=== PATIENT | female | born 1960 | race African-American/Black ===

== ENCOUNTER 2016-12-15 14:56 | Inpatient (IN) | payer OTHER ==
[~2016-12-15] VITALS: Ht 157.5 cm; Wt 106.1 kg
[~2016-12-15 14:56] MED LIST: AMOXICILLIN500 M3 PO; BACTRIM DS TAB1 EACH PO
--- NOTE | 2016-12-15 15:07 | NUR ---
PT STATES THAT THIS AM SHE NOTICED BLOOD IN HER URINE AND ALSO STATES THAT SHE FEELS WEAK. PT HAS HX OF DM, PER PT HER BLOOD SUGAR DRY SANDER WAS 225 PT ALSO C/O PAIN ADM 03/10. ALSO BURNING AND ITCHING WHILE VOIDING.
--- NOTE | 2016-12-15 16:05 | NUR ---
IV EST #20 RAC
--- NOTE | 2016-12-15 16:08 | NUR ---
LABS DRAWN AND SENT TO THE LAB
--- NOTE | 2016-12-15 16:15 | NUR ---
PT MEDICATED PER EMAR
[2016-12-15 16:20] LABS: ABSOLUTE BASOPHIL COUNT 0 /CUMM (0.0-0.2); ABSOLUTE EOSINOPHIL COUNT 0 /CUMM (0.0-0.7); ABSOLUTE GRANULOCYTE CT 16.8 /CUMM (1.4-6.5); ABSOLUTE LYMPH COUNT 1.8 /CUMM (1.2-3.4); ABSOLUTE MONOCYTE COUNT 1.4 /CUMM (0.10-0.60); BASOPHIL % 0.1 % (0.0-2.0); EOSINOPHIL % 0 % (0-5); GRANULOCYTE % 84.1 % (42.2-75.2); HEMATOCRIT 44.7 % (37-47); MEAN CORPUSCULAR HGB 25.2 PG (27.0-31.0); MEAN CORPUSCULAR HGB CONC 32.5 G/DL (33.0-37.0); MEAN CORPUSCULAR VOLUME 77.6 FL (81.0-99.0); PLATELET COUNT 242 /CUMM (130-400); RBC DISTRIBUTION WIDTH 15.8 % (11.5-14.5); RED BLOOD CELL CT 5.76 /CUMM (4.20-5.40); WHITE BLOOD CELL COUNT 19.9 /CUMM (4.8-10.8)
[2016-12-15] MEDS ORDERED: AMLODIPINE BESY10 M1 PO (16:48)
[2016-12-15] MEDS ORDERED: LISINOPRIL40 M1 PO (16:49)
[2016-12-15] MEDS ORDERED: GABAPENTIN300 M2 PO (16:49)
[2016-12-15] MEDS ORDERED: METOPROLOL SUC100 M2 PO (16:49)
[2016-12-15] MEDS ORDERED: LANTUS SOL100 UNIT/1 SC (16:49)
[2016-12-15] MEDS ORDERED: CELEBREX100 M1 PO (16:50)
[2016-12-15] MEDS ORDERED: CYCLOBENZAPRINE10 M1 PO (16:50)
[2016-12-15] MEDS ORDERED: JANUMET 50-1,01 EACH PO (16:51)
[2016-12-15] MEDS ORDERED: ASPIRIN EC81 M1 PO (16:51)
[2016-12-15] MEDS ORDERED: POTASSIUM CHLO10 ME4 PO (16:51)
[2016-12-15] MEDS ORDERED: FUROSEMIDE40 M1 PO (16:51)
[2016-12-15] MEDS ORDERED: ATORVASTATIN CA10 M1 PO (16:52)
[2016-12-15] MEDS ORDERED: NEXIUM40 M1 PO (16:52)
--- NOTE | 2016-12-15 17:26 | ED GI/GU/ABDOMINAL COMPLAINT ---
History of Present Illness General Chief Complaint: Female Urogenital Problems Stated Complaint: BLDY URINE Source: patient Exam Limitations: no limitations Vital Signs & Intake/Output Vital Signs & Intake/Output Vital Signs Date Time Temp Pulse Resp B/P Pulse O2 O2 Flow FiO2 Ox Delivery Rate 12/17 0920 101.3 12/17 0909 115 144/82 12/17 0909 115 144/82 12/17 0623 100.7 106 20 140/72 97 Nasal 2.0L Cannula 12/17 0532 97 Nasal 2.0L Cannula 12/17 0450 90 Room Air 12/17 0140 100.6 12/17 0050 102.5 12/17 0000 100.6 12/16 2232 102.5 102 18 122/82 92 Room Air 12/16 1429 98.7 89 18 132/70 92 Room Air 12/16 1231 93 124/84 12/16 1231 93 124/84 12/16 1200 98.6 94 20 128/78 94 Room Air ED Intake and Output 12/17 0000 12/16 1200 Intake Total 1520 60 Output Total 2150 200 Balance -630 -140 Intake, IV 800 Intake, Oral 720 60 Output, Urine 2150 200 Patient 234 lb Weight Allergies Coded Allergies: NO KNOWN ALLERGIES (02/17/13) Reconcile Medications Amlodipine Besylate 10 MG TABLET 1 TAB PO DAILY BP (Reported) Aspirin (Ecotrin*) 81 MG TABLET.DR 1 TAB PO DAILY HEART/BLOOD (Reported) Atorvastatin Calcium 10 MG TABLET 1 TAB PO DAILY CHOLESTEROL (Reported) Celecoxib (Celebrex) 100 MG CAPSULE 1 CAP PO BID PAIN/INFLAMMATION (Reported) Cyclobenzaprine HCl 10 MG TABLET 1 TAB PO TID PRN MUSCLE SPASMS (Reported) Esomeprazole (Nexium) 40 MG CAPSULE.DR 1 CAP PO DAILY GI (Reported) Furosemide 40 MG TABLET 1 TAB PO DAILY DIURETIC/BP (Reported) Gabapentin 300 MG CAPSULE 1 CAP PO TID NERVE PAIN (Reported) Insulin Glargine,Hum.rec.anlog (Lantus Solostar) 100 UNIT/ML (3 ML) INSULN.PEN 35 UNIT SC QPM DM (Reported) Lisinopril 40 MG TABLET 1 TAB PO DAILY BP (Reported) Metoprolol Succinate 100 MG TAB.ER.24H 1 TAB PO DAILY HEART/BP (Reported) Potassium Chloride 10 MEQ TABLET.ER 1 TAB PO DAILY SUPPLEMENT (Reported) Sitagliptin Phos/Metformin HCl (Janumet 50-1,000 MG Tablet) 50 MG-1,000 MG TABLET 1 TAB PO BID DM (Reported) Triage Note: PT STATES THAT THIS AM SHE NOTICED BLOOD IN HER URINE AND ALSO STATES THAT SHE FEELS WEAK. PT HAS HX OF DM, PER PT HER BLOOD SUGAR CHARGING MANIPULATOR WAS 225 PT ALSO C/O PAIN ADM 03/10. ALSO BURNING AND ITCHING WHILE VOIDING. Triage Nurses Notes Reviewed? yes ? N Is pt currently ? No Onset: Abrupt Duration: day(s): (2), constant, getting worse Timing: recent history Quality/Severity: moderate, sharpness, severe Location: left flank Radiation: back Activities at Onset: none No Modifying Factors: none HPI: 55-year-old female comes into emergency room for further evaluation of abdominal pain and left sided flank pain. Patient also reports increased frequency with urination burning and urgency. Patient has been having subjective fever chills and feeling generally weak. Abdominal pain is not really localized and she describes as feeling general. Nothing seems to make the symptoms better or worse. Denies any prior history of this. Denies any other associated symptoms. (XIOMARA GUAJARDO) Past History Travel History Traveled to [place] past 21 day No Medical History Any Pertinent Medical History? see below for history Cardiovascular: hypertension, hyperlipidemia Respiratory: asthma Musculoskeletal: osteoarthritis Endocrine: diabetes Surgical History Surgical History: non-contributory Psychosocial History What is your primary language Welsh Tobacco Use: Never used Family History Hx Contributory? No (XIOMARA GUAJARDO) Review of Systems Review of Systems Constitutional: Reports: no symptoms. EENTM: Reports: no symptoms. Respiratory: Reports: no symptoms. Cardiovascular: Reports: no symptoms. GI: Reports: see HPI. Genitourinary: Reports: see HPI. Musculoskeletal: Reports: no symptoms. Skin: Reports: no symptoms. Neurological/Psychological: Reports: no symptoms. Hematologic/Endocrine: Reports: no symptoms. Immunologic/Allergic: Reports: no symptoms. All Other Systems: Reviewed and Negative (XIOMARA GUAJARDO) Physical Exam Physical Exam General Appearance: well developed/nourished, alert, mild distress Head: atraumatic, normal appearance Eyes: Bilateral: normal appearance. Ears, Nose, Throat, Mouth: hearing grossly normal, moist mucous membrane Neck: normal inspection, full range of motion Respiratory: normal breath sounds, no respiratory distress Cardiovascular: regular rate/rhythm Gastrointestinal: soft Back: normal inspection Extremities: normal range of motion Neurologic/Psych: awake, alert, oriented x 3, normal gait, normal mood/affect Skin: intact, normal color Core Measures ACS in differential dx? No Severe Sepsis Present: No BC x2: Yes Lactic Acid x2: Yes IV ABX Broad Spectrum: Yes NS/LR Started: Yes Septic Shock Present: No (XIOMARA GUAJARDO) Progress Differential Diagnosis: AAA, AMI, appendicitis, biliary colic, bowel obstruction , cholecystitis, diverticulitis, ectopic , gastritis, hepatitis, hemorrhoids, inflamm bowel dis, intrauterine , kidney stone, Kennedi- Maribel tear, ovarian cyst, ovarian torsion, pancreatitis, PID/cervicitis, peptic ulcer, PUD/GERD, perforated viscous, threatened AB, UTI/pyelo Plan of Care: Orders Procedure Date/time Status URINE COLLECTION FROM OR 12/17 0941 Active OXYGEN SETUP (GEN) 12/17 0534 Complete TRC EVALUATION (GEN) 12/17 UNK Active Consistent Carbohydrate 2 12/16 L Active BLOOD CULTURE 12/16 2116 Active Patient Data 12/16 1051 Active URINE COLLECTION FROM OR 12/16 1016 Active Vital Signs 12/16 UNK Complete Fernandez, Insertion/Removal/Asses 12/16 UNK Active Activity/Ambulation 12/16 UNK Complete Laboratory Tests 12/17/16 0634: Anion Gap 7, Estimated GFR > 60, BUN/Creatinine Ratio 12.9, CBC w Diff NO MAN DIFF REQ, RBC 4.17 L, MCV 77.3 L, MCH 25.2 L, RDW 16.0 H, MPV 10.7 H, Gran % 81.9 H, Lymphocytes % 11.4 L, Monocytes % 6.3, Eosinophils % 0.2, Basophils % 0.2, Absolute Granulocytes 5.4, Absolute Lymphocytes 0.7 L, Absolute Monocytes 0.4, Absolute Eosinophils 0, Absolute Basophils 0, PUBS MCHC 32.6 L Microbiology 12/17 0941 URINE OR: Urine Culture - ORD 12/16 2201 BLOOD: Blood Culture - RECD 12/16 2152 BLOOD: Blood Culture - RECD 12/16 0950 URINE OR: Urine Culture - RES Diagnostic Imaging: Viewed by Me: CT Scan. Discussed w/RAD: CT Scan. Radiology Impression: SERVICE DATE: 12/15/166315 EXAM TYPE: CAT - CT ABD & PELVIS W/O IV CONTRAS EXAMINATION: CT ABDOMEN AND PELVIS WITHOUT CONTRAST CLINICAL INFORMATION: CVA tenderness. Pain. COMPARISON: None. TECHNIQUE: Contiguous axial thin section helical images of the abdomen and pelvis were performed without oral or IV contrast. The data set was reformatted in the coronal and sagittal planes and reviewed on an independent workstation. DLP: 1010 mGy-cm. FINDINGS: There is mild bibasilar atelectasis. The visualized lung bases are otherwise clear. The visualized portions of the heart are unremarkable. The liver is of normal size and attenuation without focal lesions nor intrahepatic biliary ductal dilation. A normal gallbladder is identified. There is no wall thickening or discernible pericholecystic fluid. The spleen, pancreas, adrenal glands are unremarkable. There is left grade 3 hydroureteronephrosis with marked dilation and tortuosity to the left ureter. No obstructing calculi are identified. There is left periureteral stranding. There is moderate urinary bladder wall thickening in the setting of a partially filled urinary bladder. As well, there is stranding identified near the left UVJ. A normal right kidney is identified. There is no abdominal free fluid. There is neither mesenteric nor retroperitoneal lymphadenopathy. Normal unopacified loops of small and large bowel are identified. There is no pelvic free fluid. There is neither pelvic nor inguinal lymphadenopathy. Bone windows: Neither sclerotic nor lytic bone lesions are identified. IMPRESSION: Left grade 3 hydronephrosis with left periureteral stranding. No discrete calculi are identified; however, there is bladder wall thickening and a left UVJ region fat stranding. This appearance is nonspecific, but could correspond to a recently passed stone, inflammatory process or a mass lesion within the distal left ureter. Consider correlation with cystoscopy and/or ureteroscopy. DICTATED BY: FRANCHESCA BAILEY MD Initial ED EKG: none (XIOMARA GUAJARDO) Departure Departure Disposition: STILL A PATIENT Condition: Stable Clinical Impression Primary Impression: Pyelonephritis Referrals: JEFFREY ESQUIVEL APRN (PCP/Family) Departure Forms: Customer Survey General Discharge Information Admission Note Spoke With: LOR BOATENG MD Documentation of Exam: Documentation of any treatments & extenuating circumstances including Concerns Regarding Discharge (functional status, medication knowledge or non-compliance, living conditions, etc.) that warrant an admission rather than observation: Patient will require IV fluids. IV hydration. Repeat labs. Urology consultation. High risk. Patient would do poorly as an outpatient. (XIOMARA GUAJARDO) PA/AUTO BODY WORKER Co-Sign Statement Statement: ED Attending supervision documentation- [] I saw and evaluated the patient. I have also reviewed all the pertinent lab results and diagnostic results. I agree with the findings and the plan of care as documented in the PA's/AUTO BODY WORKER's documentation. [X] I have reviewed the ED Record and agree with the PA's/AUTO BODY WORKER's documentation. [] Additions or exceptions (if any) to the PAs/AUTO BODY WORKER's note and plan are summarized below: [] (MANOJ SHELL,NEFTALI) is nonspecific, but could correspond to a recently passed stone, inflammatory process or a mass lesion within the distal left ureter. Consider correlation with cystoscopy and/or ureteroscopy. DICTATED BY: FRANCHESCA BAILEY MD Initial ED EKG: none Departure Departure Disposition: STILL A PATIENT Condition: Stable Clinical Impression Primary Impression: Pyelonephritis Referrals: JEFFREY ESQUIVEL APRN (PCP/Family) Departure Forms: Customer Survey General Discharge Information Admission Note Spoke With: LOR BOATENG MD Documentation of Exam: Documentation of any treatments & extenuating circumstances including Concerns Regarding Discharge (functional status, medication knowledge or non-compliance, living conditions, etc.) that warrant an admission rather than observation: Patient will require IV fluids. IV hydration. Repeat labs. Urology consultation. High risk. Patient would do poorly as an outpatient.
--- NOTE | 2016-12-15 17:54 | CT SCAN REPORT ---
EXAMINATION: CT ABDOMEN AND PELVIS WITHOUT CONTRAST CLINICAL INFORMATION: CVA tenderness. Pain. COMPARISON: None. TECHNIQUE: Contiguous axial thin section helical images of the abdomen and pelvis were performed without oral or IV contrast. The data set was reformatted in the coronal and sagittal planes and reviewed on an independent workstation. DLP: 1010 mGy-cm. FINDINGS: There is mild bibasilar atelectasis. The visualized lung bases are otherwise clear. The visualized portions of the heart are unremarkable. The liver is of normal size and attenuation without focal lesions nor intrahepatic biliary ductal dilation. A normal gallbladder is identified. There is no wall thickening or discernible pericholecystic fluid. The spleen, pancreas, adrenal glands are unremarkable. There is left grade 3 hydroureteronephrosis with marked dilation and tortuosity to the left ureter. No obstructing calculi are identified. There is left periureteral stranding. There is moderate urinary bladder wall thickening in the setting of a partially filled urinary bladder. As well, there is stranding identified near the left UVJ. A normal right kidney is identified. There is no abdominal free fluid. There is neither mesenteric nor retroperitoneal lymphadenopathy. Normal unopacified loops of small and large bowel are identified. There is no pelvic free fluid. There is neither pelvic nor inguinal lymphadenopathy. Bone windows: Neither sclerotic nor lytic bone lesions are identified. IMPRESSION: Left grade 3 hydronephrosis with left periureteral stranding. No discrete calculi are identified; however, there is bladder wall thickening and a left UVJ region fat stranding. This appearance is nonspecific, but could correspond to a recently passed stone, inflammatory process or a mass lesion within the distal left ureter. Consider correlation with cystoscopy and/or ureteroscopy.
--- NOTE | 2016-12-15 19:24 | NUR ---
REPORT REPORTED. PT ALERT AND ORIENTED X 4. VITAL SIGNS STABLE. IV NS THIRD BAG UP INFUSING, ROCEPHIN 1G INFUSING ORDERED. C/O LEFT FLANK PAIN 06/10. MEDICATED WITH VICODIN PRIN ORDERED.
--- NOTE | 2016-12-15 19:44 | History & Physical ---
WOODY CURRY 12/15/161910: General Information and HPI MD Statement: I have seen and personally examined JOHN BLACKBURN and documented this H&P. The patient is a 55 year old F who presented with a patient stated chief complaint of [abdominal pain, blood in urine]. Source of Information: patient Exam Limitations: no limitations History of Present Illness: Patient is a 55-year-old female with past medical history of hypertension, hyperlipidemia, asthma, osteoarthritis, siatica, diabetes mellitus presented to the ED with a chief complaint of abdominal pain, worsening nausea and blood in urine for the past 2 days. Patient states that for the past 2 days she has been feeling very weak, nauseous and lethargic. She has been having crampy abdominal pain mostly located in the left lower quadrant about 8 / 10 in intensity radiating to her left groin. She also complains of pain in her left flank area. She has been feeling hot with chills but never measured her temperature at home. Complains of increased, urgency, frequency and dysuria along with some bright red blood in urine and bright blood on the tissue when wiping. She has been feeling so sick and nauseous that she hasn't eaten much over the past 2 days. Denies any history of kidney stones, frequent UTIs or urinary problems. Denies any headaches, chest pain, vomiting, palpitations, bowel complaints, recent travel or sick contacts. In the ED Vitals: Temperature 96.6, pulse 118, respiration 18, blood pressure 121/79, saturating 95% on room air Pertinent labs showed white count of 19.9 no bands, H&H of 14.5/44.7, sodium 135 , potassium 3.7, creatinine 1.1(baseline 0.9), glucose 262, lactic acid pending, normal LFTs. UA: Bloody, tarry., Positive nitrite, moderate leukocyte esterase, 50-75 WBC, large hemoglobin, increased RBCs, glucose 500, protein more than 300. Abdominal pelvis CT:Left grade 3 hydronephrosis with left periureteral stranding. No discrete calculi are identified; however, there is bladder wall thickening and a left UVJ region fat stranding. This appearance is nonspecific, but could correspond to a recently passed stone, inflammatory process or a mass lesion within the distal left ureter. Patient was given 4 L normal saline boluses, IV Toradol and IV Zofran along with IV ceftriaxone in the ED. Allergies/Medications Allergies: Coded Allergies: NO KNOWN ALLERGIES (02/17/13) Home Med list Amlodipine Besylate 10 MG TABLET 1 TAB PO DAILY BP (Reported) Aspirin (Ecotrin*) 81 MG TABLET.DR 1 TAB PO DAILY HEART/BLOOD (Reported) Atorvastatin Calcium 10 MG TABLET 1 TAB PO DAILY CHOLESTEROL (Reported) Celecoxib (Celebrex) 100 MG CAPSULE 1 CAP PO BID PAIN/INFLAMMATION (Reported) Cyclobenzaprine HCl 10 MG TABLET 1 TAB PO TID PRN MUSCLE SPASMS (Reported) Esomeprazole (Nexium) 40 MG CAPSULE.DR 1 CAP PO DAILY GI (Reported) Furosemide 40 MG TABLET 1 TAB PO DAILY DIURETIC/BP (Reported) Gabapentin 300 MG CAPSULE 1 CAP PO TID NERVE PAIN (Reported) Insulin Glargine,Hum.rec.anlog (Lantus Solostar) 100 UNIT/ML (3 ML) INSULN.PEN 35 UNIT SC QPM DM (Reported) Lisinopril 40 MG TABLET 1 TAB PO DAILY BP (Reported) Metoprolol Succinate 100 MG TAB.ER.24H 1 TAB PO DAILY HEART/BP (Reported) Potassium Chloride 10 MEQ TABLET.ER 1 TAB PO DAILY SUPPLEMENT (Reported) Sitagliptin Phos/Metformin HCl (Janumet 50-1,000 MG Tablet) 50 MG-1,000 MG TABLET 1 TAB PO BID DM (Reported) Past History Travel History Traveled to [place] past 21 day No Medical History Cardiovascular: hypertension, hyperlipidemia Respiratory: asthma Musculoskeletal: osteoarthritis Endocrine: diabetes Surgical History Surgical History: non-contributory Review of Systems Review of Systems Constitutional: Reports: chills, malaise, weakness. EENTM: Reports: no symptoms. Cardiovascular: Reports: no symptoms. Respiratory: Reports: no symptoms. GI: Reports: abdominal pain, nausea. Genitourinary: Reports: dysuria, frequency, hematuria, nocturia, pain. Musculoskeletal: Reports: no symptoms. Skin: Reports: no symptoms. Neurological/Psychological: Reports: no symptoms. Exam & Diagnostic Data Last 24 Hrs of Vital Signs/I&O Vital Signs Date Time Temp Pulse Resp B/P Pulse O2 O2 Flow FiO2 Ox Delivery Rate 12/15 1914 97.8 82 18 126/64 97 Room Air 12/15 1508 96.6 118 18 121/79 95 Room Air Intake & Output 12/15 1600 12/15 0800 12/15 0000 Intake Total Output Total Balance Patient 110.223 kg Weight Physical Exam General Appearance Alert, Oriented X3, Cooperative, Mild Distress Skin No Rashes, No Breakdown HEENT Atraumatic, PERRLA, EOMI Neck Supple, No JVD Lymphatic Cervical nl Cardiovascular Regular Rate, Normal S1, Normal S2 Lungs Clear to Auscultation, Normal Air Movement Abdomen LLQ TENDERNESS, CVA TENDERNESS LEFT SIDE. nO GUARDING/RIGIDITY Neurological Normal Tone, Sensation Intact, Cranial Nerves 3-12 NL, Reflexes 2+, 3/5 POWER ON LEFT UPPER AND LOWER EXTREMITIES Extremities No Clubbing, No Cyanosis, No Edema, Normal Pulses Last 24 Hrs of Labs/Michael: Laboratory Tests 12/15/16 1611: Urine Color BLDY H, Urine Clarity TURBD H, Urine pH 7.0, Ur Specific [place] 1.020, Urine Protein >=300 H, Urine Ketones 15 H, Urine Nitrite POS H, Urine Bilirubin NEG, Urine Urobilinogen 2.0 H, Ur Leukocyte Esterase MOD H, Ur Microscopic SEDIMENT EXAMINED, Urine RBC PACKD H, Urine WBC 50-75 H, Ur Epithelial Cells FEW, Urine Bacteria RARE H, Urine Hemoglobin LARGE H, Urine Glucose 500 H 12/15/16 1608: Anion Gap 15, Estimated GFR 51 L, BUN/Creatinine Ratio 15.5, Glucose 262 H, Lactic Acid Pending, Calcium 10.1, Total Bilirubin 1.3, AST 23, ALT 41, Alkaline Phosphatase 121, Total Protein 7.4, Albumin 4.1, Globulin 3.3, Albumin/Globulin Ratio 1.2, Lipase 122, CBC w Diff MAN DIFF ORDERED, RBC 5.76 H, MCV 77.6 L, MCH 25.2 L, RDW 15.8 H, MPV 10.0, Gran % 84.1 H, Lymphocytes % 8.8 L, Monocytes % 7.0, Eosinophils % 0, Basophils % 0.1, Absolute Granulocytes 16.8 H , Absolute Lymphocytes 1.8, Absolute Monocytes 1.4 H, Absolute Eosinophils 0, Absolute Basophils 0, Platelet Estimate ADEQUATE, Polychromasia 1+, Poikilocytosis FEW, Anisocytosis 1+, Microcytic Cells 1+, Stomatocytes FEW, PUBS MCHC 32.5 L Microbiology 12/15 1833 BLOOD: Blood Culture - RECD 12/15 1826 BLOOD: Blood Culture - RECD Assessment/Plan Assessment: Patient is a 55-year-old female with past medical history of hypertension, hyperlipidemia, asthma, osteoarthritis, siatica, diabetes mellitus presented to the ED with a chief complaint of abdominal pain, worsening nausea and blood in urine for the past 2 days. In the ED Vitals: Temperature 96.6, pulse 118, respiration 18, blood pressure 121/79, saturating 95% on room air Pertinent labs showed white count of 19.9 no bands, H&H of 14.5/44.7, sodium 135 , potassium 3.7, creatinine 1.1(baseline 0.9), glucose 262, lactic acid pending, normal LFTs. UA: Bloody, tarry., Positive nitrite, moderate leukocyte esterase, 50-75 WBC, large hemoglobin, increased RBCs, glucose 500, protein more than 300. Abdominal pelvis CT:Left grade 3 hydronephrosis with left periureteral stranding. No discrete calculi are identified; however, there is bladder wall thickening and a left UVJ region fat stranding. This appearance is nonspecific, but could correspond to a recently passed stone, inflammatory process or a mass lesion within the distal left ureter. Patient was given 4 L normal saline boluses, IV Toradol and IV Zofran along with IV ceftriaxone in the ED. Plan: 1.Sepsis of urological origin 2/2 Pyelonephritis, cystitis? Dirty urine with CT evidence of left grade 3 hydronephrosis with periurethral stranding /bladder wall thickening and a left UVJ region fat stranding. Patient could've passed a renal stone. Meets Sepsis criteria with tachycardia, leukocytosis with source being the urine. -[facility] -We'll keep patient nothing by mouth from midnight for possible intervention/ stent placement by urology. -Aggressive hydration with IV normal saline at 150 mL per hour X 2 bags. Patient received 3 L bolus in the ED. - Lactic acid levels pending -Patient received 1 dose of IV ceftriaxone in the ED. Continue the same pending culture and sensitivities. -Urine and blood cultures -Continue pain control with Tylenol Vicodin and morphine as needed -Urology consult 2.Flory: Postrenal secondary to grade 3 hydronephrosis2/2 calculi. Baseline 0.9. -Continue hydration with IV fluids at 100 mL an hour -Urology consult pending -Check BeP in a.m. -Avoid nephrotoxins -Holding Lasix, Lisinopril, PPI, NSAID 4. Diabetes mellitus -Hold home meds Janumet and insulin -Start patient on NovoLog scale -3 times a day Accu-Cheks - Diabetic diet 4. Hypertension/hyperlipidemia -Continue home meds atorvastatin and metoprolol from tomorrow if blood pressure stable. -Holding lisinopril for FLORY 5. Chronic back pain -Continue pain medication for mild/moderate and severe pain -Continue muscle relaxant and gabapentin Diabetic diet/nothing by mouth from midnight Severe pain pathway Full code As Ranked By This Provider Problem List: 1. Pyelonephritis Core Measures/Miscellaneous Acute Coronary Syndrome ACS Diagnosis: No Cerebrovascular Accident CVA/TIA Diagnosis: No Congestive Heart Failure CHF Diagnosis: No Venous Thromboembolism VTE Risk Factors: Age > 40, Obesity No [facility] VTE prophylaxis d/t: No contraindications No VTE Pharm Prophylaxis d/t: No contraindications VTE Diagnosis: No VTE Type: NONE VTE Confirmed by (Test): NONE Severe Sepsis Severe Sepsis Present: No Septic Shock Septic Shock Present: No Miscellaneous Documentation Attending Case Discussed With: LOR BOATENG MD Primary Care Physician: JEFFREY ESQUIVEL APRN Patient sees these Specialists none Level of Patient Care: General Medicine LOR BOATENG 12/16/16 0215: Attending MD Review Statement Attending Statement Attending MD Statement: examined this patient, discuss w/resident/PA/INSTRUCTIONAL TECHNOLOGY INSTRUCTOR, agreed w/resident/PA/INSTRUCTIONAL TECHNOLOGY INSTRUCTOR, reviewed EMR data (avail), reviewed images, amended to note Attending Assessment/Plan: CC : Blood in urine, left-sided abdominal pain PMH: DM, insulin-dependent, HTN, HLD, asthma, OA, history of meningitis as a child S/P residual left-sided weakness Patient came to ER for left sided abdominal pain and left sided flank pain, blood in urine. Last few days she's been noticing increased urinary frequency, burning, subjective fever, chills and nausea. Patient describes abdominal pain coming from back and going to lower abdomen, later on followed by blood in urine as mentioned. She never had similar symptoms in the past. Patient did not remember passing any stone. Patient is ambulating with a cane or a walker, activity restricted secondary to severe osteoarthritis, has history of dyspnea on exertion, on Lasix beta neri and EMILY inhibitor but not aware if she has history of heart failure. Vitals: T max 98.3, tachycardic at presentation at 118 improved to 84, RR, BP, O2 saturation within acceptable range. On examination: Obese, no acute distress, a O 3, neck supple, no JVD, no lymphadenopathy, mucosa dry. Residual weakness on left side, 4+/ 5. CVS: S1-S2, RRR. RS: Clear to auscultate bilaterally. Abdomen: Tenderness over the left lower quadrant, left CVA angle, bowel sounds normal, no guarding or rigidity. No dependent edema, peripheral pulses and perfusion normal. Labs: WBC 19.9, neutrophils 84%, lactic acid 2.4, sodium 135, chloride 96, creatinine 1.1, glucose 262, lipase 122, LFT unremarkable. UA turbid, positive for nitrite, leukocyte esterase, large hemoglobin. CT abdomen pelvis without IV contrast:Left grade 3 hydronephrosis with left periureteral stranding. No discrete calculi are identified; however, there is bladder wall thickening and a left UVJ region fat stranding. This appearance is nonspecific, but could correspond to a recently passed stone, inflammatory process or a mass lesion within the distal left ureter. Consider correlation with cystoscopy and/or ureteroscopy. A and P #1 sepsis secondary to hydronephrosis with pyelonephritis: Leukocytosis, evidence of UTI, CVA tenderness, abdominal pain. From Symptoms and CT finding it appears that patient may have passed stone, cannot confirm. Continue IV hydration, urine culture, blood culture, trend lactate, IV ceftriaxone 1 g daily. Urology consult in a.m. nothing by mouth after midnight #2 HTN: Considering current sepsis, hold lisinopril, Lasix. Schedule amlodipine and metoprolol for tomorrow, according to blood pressure readings overnight. #3 DM: Hold oral hypoglycemic, patient takes 35 units Lantus at home at bedtime. Considering patient being nothing by mouth, continue short-acting insulin sliding scale, resume her medications in a.m. according to surgical intervention planned and diet ordered. #4 patient on beta neri, EMILY inhibitor, Lasix, unaware of history of heart failure. Patient admits on and off leg swelling, dyspnea on exertion. At this point patient requires aggressive hydration for sepsis but watchful for any volume overload given suspected underlying heart failure. #5 DVT prophylaxis with Alps, currently patient having hematuria no heparin or Lovenox.
--- NOTE | 2016-12-15 20:05 | NUR ---
Emergency Dept [facility] Admit Note: To be admitted to [facility] by DESPHANDGil with PYELONEPHRITIS as the diagnosis, to [phone] location. Nursing Formula Technician and admitting notified 12/15/16 at 1934
--- NOTE | 2016-12-15 20:30 | NUR ---
REPORTS PAIN DOWN TO 8/10, BUT DIDN'T WANT ANYTHING FOR PAIN.
--- NOTE | 2016-12-15 20:38 | NUR ---
REPORT CALLED. DISTRIBUTION CALLED.
--- NOTE | 2016-12-15 20:50 | NUR ---
LACTIC ACID SECOND DRAWN AND SENT.
[2016-12-15 21:00] VITALS: BP 122/64
--- NOTE | 2016-12-15 21:16 | NUR ---
IV NS INFUSED. NS 4TH LITER UP INFUSING ORDERED.
--- NOTE | 2016-12-15 21:20 | NUR ---
JOHN BLACKBURN Nurse Note by: DILAN PUCKETT I agree with the WELDING SPECIALIST findings/evaluation of this patient's condition. Entered by: DILAN PUCKETT Date: 12/15/16 Time: 2119
--- NOTE | 2016-12-16 02:15 | Admission Certification ---
Admission Certification Certification Statement - As attending physician, I certify that at the time of - admission, based on clinical presentation, severity of - symptoms, need for further diagnostic testing and - therapeutic interventions, and risk of adverse outcomes - without in-hospital treatment, in my clinical assessment, - this patient requires an acute hospital stay for a minimum - of two nights or longer. I have also considered psychsocial - factors such as support system, advanced age, financial - issues, cognitive issues, and failed out-patient treatments, - past re-admission history, safety of patient, and lack of - compliance as applicable. Specific rationale supporting this admission is: Pyelonephritis with hydronephrosis with underlying multiple comorbidities.
--- NOTE | 2016-12-16 06:43 | PN- Housestaff ---
See Addendum Subjective Follow-up For: Sepsis of urological origin Flory Diabetes mellitus Subjective: Patient seen and examined. Lying comfortably in bed. Feeling a little better than yesterday. Abdominal pain a little improved. He is being maintained nothing by mouth for a possible procedure by urology. Review of Systems Constitutional: Reports: malaise, weakness. EENTM: Reports: no symptoms. Cardiovascular: Reports: no symptoms. Respiratory: Reports: no symptoms. Gastrointestinal: Reports: abdominal pain. Genitourinary: Reports: discharge, dysuria, frequency, hematuria, nocturia, urgency. Musculoskeletal: Reports: back pain. Skin: Reports: no symptoms. Objective Last 24 Hrs of Vital Signs/I&O Vital Signs Date Time Temp Pulse Resp B/P Pulse O2 O2 Flow FiO2 Ox Delivery Rate 12/15 2100 98.3 84 20 122/64 97 Room Air 12/15 1913 97.8 82 18 126/64 97 Room Air 12/15 1508 96.6 118 18 121/79 95 Room Air Intake & Output 12/16 0800 12/16 0000 12/15 1600 Intake Total 720 Output Total 250 Balance 470 Intake, IV 350 Intake, Oral 370 Output, Urine 250 Patient 106.141 kg 110.223 kg Weight Physical Exam General Appearance: Alert, Oriented X3, Cooperative, No Acute Distress Skin: No Rashes, No Breakdown HEENT: Atraumatic, PERRLA Neck: Supple, No JVD Lymphatic: Cervical nl Cardiovascular: Regular Rate, Normal S1, Normal S2, No Murmurs Lungs: Clear to Auscultation, Normal Air Movement Abdomen: LLQ tenderness, left CVA tenderness Neurological: 3/5 power in left upper and lower extremities Extremities: No Clubbing, No Cyanosis, No Edema, Normal Pulses Current Medications: Current Medications Sig/Marilia Start time Last Medication Dose Route Stop Time Status Admin Acetaminophen 325 MG Q6 PRN 12/15 1844 AC PO Acetaminophen/ 0 .STK-MED ONE 12/15 1917 DC Hydrocodone Bitart PO Acetaminophen/ 1 TAB Q6P PRN 12/15 1844 AC 12/15 Hydrocodone Bitart PO 1931 Amlodipine Besylate 10 MG DAILY 12/16 1000 AC PO Aspirin Buffered 81 MG DAILY 12/16 1000 AC PO Atorvastatin Calcium 10 MG DAILY 12/16 1000 AC PO Ceftriaxone Sodium 1,000 MG DAILY@1930 03/18 1930 AC IV Ceftriaxone Sodium 0 .STK-MED ONE 12/15 1912 DC .ROUTE Ceftriaxone Sodium 1,000 MG ONCE ONE 12/15 1815 DC 12/15 IV 12/15 1816 1932 Cyclobenzaprine HCl 10 MG TID PRN 12/15 2014 AC 12/15 PO 2330 Gabapentin 300 MG TID 12/15 2200 AC 12/15 PO 2330 Heparin Sodium 5,000 UNIT Q8 12/15 2200 DC 12/16 (Porcine) SC 0545 Insulin Aspart 0 TIDAC 12/16 0800 AC SC Ketorolac 0 .STK-MED ONE 12/15 1614 DC Tromethamine .ROUTE Ketorolac 30 MG ONCE ONE 12/15 1600 DC 12/15 Tromethamine IV 12/15 1601 1615 Metoprolol Succinate 100 MG DAILY 12/16 1000 AC PO Morphine Sulfate 2 MG Q4P PRN 12/15 1845 AC IV Ondansetron HCl 0 .STK-MED ONE 12/15 1614 DC .ROUTE Ondansetron HCl 4 MG ONCE ONE 12/15 1600 DC 12/15 IV 12/15 1601 1615 Oxycodone HCl 10 MG Q6P PRN 12/15 1845 AC 12/16 PO 0607 Patient Medication 1 UNIT ONE NR 12/15 2045 DC Teaching ED 12/15 2100 Patient Medication 1 UNIT ONE NR 12/15 204 DC Teaching ED 12/15 2100 Patient Medication 1 UNIT ONE NR 12/15 2045 DC Teaching ED 12/15 2100 Patient Medication 1 UNIT ONE NR 12/15 2045 DC Teaching ED 12/15 2100 Patient Medication 1 UNIT ONE NR 12/15 2045 MD Teaching ED 12/15 2100 Sodium Chloride 1,000 ML Q6H 12/15 2014 AC 12/16 IV 12/16 0814 0545 Sodium Chloride 1,000 ML BOLUS ONE 12/15 181 DC 12/15 IV 12/15 1914 1816 Sodium Chloride 1,000 ML BOLUS ONE 12/15 1815 DC IV 12/15 1914 Sodium Chloride 1,000 ML BOLUS ONE 12/15 1815 DC 12/15 IV 12/15 1914 1929 Sodium Chloride 1,000 ML BOLUS ONE 12/15 1600 DC 12/15 IV 12/15 1659 1615 Last 24 Hrs of Lab/Michael Results Last 24 Hrs of Labs/Mics: Laboratory Tests 12/16/16 0135: Lactic Acid 1.6 12/15/162044: Lactic Acid 1.2 12/15/162027: Lactic Acid Cancelled 12/15/16 1611: Urine Color BLDY H, Urine Clarity TURBD H, Urine pH 7.0, Ur Specific [place] 1.020, Urine Protein >=300 H, Urine Ketones 15 H, Urine Nitrite POS H, Urine Bilirubin NEG, Urine Urobilinogen 2.0 H, Ur Leukocyte Esterase MOD H, Ur Microscopic SEDIMENT EXAMINED, Urine RBC PACKD H, Urine WBC 50-75 H, Ur Epithelial Cells FEW, Urine Bacteria RARE H, Urine Hemoglobin LARGE H, Urine Glucose 500 H 12/15/16 1608: Anion Gap 15, Estimated GFR 51 L, BUN/Creatinine Ratio 15.5, Glucose 262 H, Lactic Acid 2.4 H, Calcium 10.1, Total Bilirubin 1.3, AST 23, ALT 41, Alkaline Phosphatase 121, Total Protein 7.4, Albumin 4.1, Globulin 3.3, Albumin/Globulin Ratio 1.2, Lipase 122, CBC w Diff MAN DIFF ORDERED, RBC 5.76 H, MCV 77.6 L, MCH 25.2 L, RDW 15.8 H, MPV 10.0, Gran % 84.1 H, Lymphocytes % 8.8 L, Monocytes % 7.0, Eosinophils % 0, Basophils % 0.1, Absolute Granulocytes 16.8 H , Absolute Lymphocytes 1.8, Absolute Monocytes 1.4 H, Absolute Eosinophils 0, Absolute Basophils 0, Platelet Estimate ADEQUATE, Polychromasia 1+, Poikilocytosis FEW, Anisocytosis 1+, Microcytic Cells 1+, Stomatocytes FEW, PUBS MCHC 32.5 L Microbiology 12/16 0000 URINE ROUT: Urine Culture - RECD 12/15 1834 BLOOD: Blood Culture - RECD 12/15 182 BLOOD: Blood Culture - RECD Assessment/Plan Assessment: Patient is a 55-year-old female with past medical history of hypertension, hyperlipidemia, asthma, osteoarthritis, siatica, diabetes mellitus presented to the ED with a chief complaint of abdominal pain, worsening nausea and blood in urine for the past 2 days. Vitals: Temperature 96.6, pulse 118, respiration 18, blood pressure 121/79, saturating 95% on room air Pertinent labs showed white count of 19.9 no bands, H&H of 14.5/44.7, sodium 135 , potassium 3.7, creatinine 1.1(baseline 0.9), glucose 262, lactic acid normal, normal LFTs. UA: Bloody, tarry., Positive nitrite, moderate leukocyte esterase, 50-75 WBC, large hemoglobin, increased RBCs, glucose 500, protein more than 300. Abdominal pelvis CT:Left grade 3 hydronephrosis with left periureteral stranding. No discrete calculi are identified; however, there is bladder wall thickening and a left UVJ region fat stranding. This appearance is nonspecific, but could correspond to a recently passed stone, inflammatory process or a mass lesion within the distal left ureter. Patient was given 4 L normal saline boluses, IV Toradol and IV Zofran along with IV ceftriaxone in the ED. Plan: 1.Sepsis of urological origin due to pyelonephritis (Dirty urineCT evidence of left grade 3 hydronephrosis with periurethral stranding /bladder wall thickening and a left UVJ region fat stranding.) * Patient could've passed a renal stone. * Meets Sepsis criteria with tachycardia, leukocytosis with source being the urine. * Maintained nothing by mouth from midnight for possible intervention/stent placement by urology. * Aggressive hydration with IV normal saline at 150 mL per hour X 2 bags. Patient received 3 L bolus in the ED. * Lactic acid levels trended down * Patient received 1 dose of IV ceftriaxone in the ED. Continue the same pending culture and sensitivities. * Urine and blood cultures * Continue pain control with Tylenol Vicodin and morphine as needed * Urology consult in am for possible intervention 2.Flory: Postrenal obstruction due to hydronephrosis/ calculi . Baseline 0.9. * Continue hydration with IV fluids at 100 mL an hour * Urology consult pending * Check BeP in a.m. * Avoid nephrotoxins * Holding Lasix, Lisinopril, PPI, NSAID 4. Diabetes mellitus * Hold home meds Janumet and insulin * On a Novolin scale since patient is nothing by mouth. Please restart the NovoLog scale once patient starts eating * 3 times a day Accu-Cheks * Diabetic diet 5. Hypertension/hyperlipidemia * Continue home meds atorvastatin and metoprolol from tomorrow if blood pressure stable. * Holding lisinopril for FLORY 6. Chronic back pain * Continue pain medication for mild/moderate and severe pain * Continue muscle relaxant and gabapentin nothing by mouth from midnight been urological procedure Severe pain pathway Full code DVT prophylaxis Alps(hematuria) Problem List: 1. Pyelonephritis 2. FLORY (acute kidney injury) 3. Diabetes mellitus Pain Ratin Pain Location: LLQ and left flank Pain Goal: Pain 4 or less Pain Plan: morphine vicodin tylenol Tomorrow's Labs & Rationales: cbc..infection bep... flory
[2016-12-16 07:48] VITALS: BP 118/60
--- NOTE | 2016-12-16 08:00 | Cons- Urology ---
General Information and HPI Consulting Request Date of Consult: 12/16/16 Requested By: Medical service LOR BOATENG MD Reason for Consult: Fever, leukocytosis, infected urine, L hydro-ureteronephrosis Source of Information: patient, old records Exam Limitations: no limitations History of Present Illness: This patient presented to the hospital with weakness and L flank pain. She was found to have infected urine, leukocytosis and elevated serum lactate level. A CT of the abd and pelvis showed moderate L hydro-ureteronephrosis to the level of the bladder, L periureteral stranding, and a thick-walled bladder. No ureteral stone was seen and the possibility of a recently passed stone was raised. She has no hx of urinary stones in the past. Since admission she received 1 dose of ceftriaxone and IV hydration. She feels slightly better but continues with L flank discomfort. Allergies/Medications Allergies: Coded Allergies: NO KNOWN ALLERGIES (02/17/13) Home Med List: Amlodipine Besylate 10 MG TABLET 1 TAB PO DAILY BP (Reported) Aspirin (Ecotrin*) 81 MG TABLET.DR 1 TAB PO DAILY HEART/BLOOD (Reported) Atorvastatin Calcium 10 MG TABLET 1 TAB PO DAILY CHOLESTEROL (Reported) Celecoxib (Celebrex) 100 MG CAPSULE 1 CAP PO BID PAIN/INFLAMMATION (Reported) Cyclobenzaprine HCl 10 MG TABLET 1 TAB PO TID PRN MUSCLE SPASMS (Reported) Esomeprazole (Nexium) 40 MG CAPSULE.DR 1 CAP PO DAILY GI (Reported) Furosemide 40 MG TABLET 1 TAB PO DAILY DIURETIC/BP (Reported) Gabapentin 300 MG CAPSULE 1 CAP PO TID NERVE PAIN (Reported) Insulin Glargine,Hum.rec.anlog (Lantus Solostar) 100 UNIT/ML (3 ML) INSULN.PEN 35 UNIT SC QPM DM (Reported) Lisinopril 40 MG TABLET 1 TAB PO DAILY BP (Reported) Metoprolol Succinate 100 MG TAB.ER.24H 1 TAB PO DAILY HEART/BP (Reported) Potassium Chloride 10 MEQ TABLET.ER 1 TAB PO DAILY SUPPLEMENT (Reported) Sitagliptin Phos/Metformin HCl (Janumet 50-1,000 MG Tablet) 50 MG-1,000 MG TABLET 1 TAB PO BID DM (Reported) Current Medications: Current Medications Sig/Marilia Start time Last Medication Dose Route Stop Time Status Admin Acetaminophen 325 MG Q6 PRN 12/15 1845 AC PO Acetaminophen/ 0 .STK-MED ONE 12/15 191 DC Hydrocodone Bitart PO Acetaminophen/ 1 TAB Q6P PRN 12/15 1845 AC 12/15 Hydrocodone Bitart PO 1932 Amlodipine Besylate 10 MG DAILY 12/16 1000 AC PO Aspirin Buffered 81 MG DAILY 12/16 1000 AC PO Atorvastatin Calcium 10 MG DAILY 12/16 1000 AC PO Ceftriaxone Sodium 1,000 MG DAILY@1930 12/16 1930 AC IV Ceftriaxone Sodium 0 .STK-MED ONE 12/15 191 DC .ROUTE Ceftriaxone Sodium 1,000 MG ONCE ONE 12/15 1815 DC 12/15 IV 12/15 181 193 Cyclobenzaprine HCl 10 MG TID PRN 12/15 2014 AC 12/15 PO 2330 Gabapentin 300 MG TID 12/15 2199 AC 12/15 PO 2330 Heparin Sodium 5,000 UNIT Q8 12/15 220 DC 12/16 (Porcine) SC 0545 Insulin Aspart 0 TIDAC 12/16 0800 CAN SC Insulin Human Regular 0 TIDAC/HS 12/16 0800 AC SC Ketorolac 0 .STK-MED ONE 12/15 1614 DC Tromethamine .ROUTE Ketorolac 30 MG ONCE ONE 12/15 1600 DC 12/15 Tromethamine IV 12/15 1601 1615 Metoprolol Succinate 100 MG DAILY 12/16 1000 AC PO Morphine Sulfate 2 MG Q4P PRN 12/15 1845 AC IV Ondansetron HCl 0 .STK-MED ONE 12/15 1614 DC .ROUTE Ondansetron HCl 4 MG ONCE ONE 12/15 1600 DC 12/15 IV 12/15 1601 1615 Oxycodone HCl 10 MG Q6P PRN 12/15 1845 AC 12/16 PO 0607 Patient Medication 1 UNIT ONE NR 12/15 2044 DC Teaching ED 12/15 2100 Patient Medication 1 UNIT ONE NR 12/15 2044 DC Teaching ED 12/15 2100 Patient Medication 1 UNIT ONE NR 12/15 2044 DC Teaching ED 12/15 2100 Patient Medication 1 UNIT ONE NR 12/15 2044 DC Teaching ED 12/15 2100 Patient Medication 1 UNIT ONE NR 12/15 2044 DC Teaching ED 12/15 2100 Sodium Chloride 1,000 ML Q6H 12/15 2014 AC 12/16 IV 12/16 0814 0545 Sodium Chloride 1,000 ML BOLUS ONE 12/15 1815 DC 12/15 IV 12/15 191 1816 Sodium Chloride 1,000 ML BOLUS ONE 12/15 1815 DC IV 12/15 191 Sodium Chloride 1,000 ML BOLUS ONE 12/15 1815 DC 12/15 IV 12/15 1914 1929 Sodium Chloride 1,000 ML BOLUS ONE 12/15 1600 DC 12/15 IV 12/15 1659 1615 Past History Medical History Blood Transfusion Hx: No Neurological: NONE EENT: allergies Cardiovascular: hypertension, hyperlipidemia Respiratory: asthma Gastrointestinal: GERD Hepatic: NONE Renal: NONE Musculoskeletal: chronic back pain, falls, osteoarthritis, sciatica Psychiatric: NONE Endocrine: diabetes Blood Disorders: NONE Cancer(s): NONE DEPARTMENT OF SOCIOLOGY CHAIR/Reproductive: TUBAL LIGATION Surgical History Pertinent Surgical History: appendectomy, tubal ligation, TONSILLECTOMY Psychosocial History Where Do You Live? Home Services at Home: None Smoking Status: Never Smoked Exam & Diagnostic Data Vital Signs and I&O Vital Signs Date Time Temp Pulse Resp B/P Pulse O2 O2 Flow FiO2 Ox Delivery Rate 12/16 0748 100.7 123 20 118/60 92 Room Air 12/15 2100 98.3 84 20 122/64 97 Room Air 12/15 1914 97.8 82 18 126/64 97 Room Air 12/15 1508 96.6 118 18 121/79 95 Room Air Intake & Output 12/16 0800 12/16 0000 12/15 1600 12/15 0800 12/15 0000 12/14 1600 Intake Total 720 Output Total 250 Balance 470 Intake, IV 350 Intake, Oral 370 Output, Urine 250 Patient 234 lb 243 lb Weight Back: L CVA tenderness present Abd: soft and non tender Laboratory Tests 12/16 12/16 12/15 12/15 0625 0135 2044 2027 Chemistry Sodium Pending Potassium Pending Chloride Pending Carbon Dioxide Pending Anion Gap Pending BUN Pending Creatinine Pending BUN/Creatinine Ratio Pending Lactic Acid (0.7 - 2.1 mmol/L) 1.6 1.2 Cancelled Hematology CBC w Diff Pending WBC Pending RBC Pending Hgb Pending Hct Pending MCV Pending MCH Pending RDW Pending Plt Count Pending MPV Pending PUBS MCHC Pending 12/15 12/15 1611 1608 Chemistry Sodium (137 - 145 mmol/L) 135 L Potassium (3.5 - 5.1 mmol/L) 3.7 Chloride (98 - 107 mmol/L) 96 L Carbon Dioxide (22 - 30 mmol/L) 25 Anion Gap (5 - 16) 15 BUN (7 - 17 mg/dL) 17 Creatinine (0.5 - 1.0 mg/dL) 1.1 H Estimated GFR (>60 ml/min) 51 L BUN/Creatinine Ratio (7 - 25 %) 15.5 Glucose (65 - 99 mg/dL) 262 H Lactic Acid (0.7 - 2.1 mmol/L) 2.4 H Calcium (8.4 - 10.2 mg/dL) 10.1 Total Bilirubin (0.2 - 1.3 mg/dL) 1.3 AST (14 - 36 U/L) 23 ALT (9 - 52 U/L) 41 Alkaline Phosphatase (<127 U/L) 121 Total Protein (6.3 - 8.2 g/dL) 7.4 Albumin (3.5 - 5.0 g/dL) 4.1 Globulin (1.9 - 4.2 gm/dL) 3.3 Albumin/Globulin Ratio (1.1 - 2.2 %) 1.2 Lipase (23 - 300 U/L) 122 Hematology CBC w Diff MAN DIFF ORDERED WBC (4.8 - 10.8 /CUMM) 19.9 H RBC (4.20 - 5.40 /CUMM) 5.76 H Hgb (12.0 - 16.0 G/DL) 14.5 Hct (37 - 47 %) 44.7 MCV (81.0 - 99.0 FL) 77.6 L MCH (27.0 - 31.0 PG) 25.2 L RDW (11.5 - 14.5 %) 15.8 H Plt Count (130 - 400 /CUMM) 242 MPV (7.4 - 10.4 FL) 10.0 Gran % (42.2 - 75.2 %) 84.1 H Lymphocytes % (20.5 - 51.1 %) 8.8 L Monocytes % (1.7 - 9.3 %) 7.0 Eosinophils % (0 - 5 %) 0 Basophils % (0.0 - 2.0 %) 0.1 Absolute Granulocytes (1.4 - 6.5 /CUMM) 16.8 H Absolute Lymphocytes (1.2 - 3.4 /CUMM) 1.8 Absolute Monocytes (0.10 - 0.60 /CUMM) 1.4 H Absolute Eosinophils (0.0 - 0.7 /CUMM) 0 Absolute Basophils (0.0 - 0.2 /CUMM) 0 Platelet Estimate (ADEQUATE) ADEQUATE Polychromasia 1+ Poikilocytosis FEW Anisocytosis 1+ Microcytic Cells 1+ Stomatocytes FEW PUBS MCHC (33.0 - 37.0 G/DL) 32.5 L Urines Urine Color (YEL,AMB,STR) BLDY H Urine Clarity (CLEAR) TURBD H Urine pH (5.0 - 8.0) 7.0 Ur Specific [place] (1.001 - 1.035) 1.020 Urine Protein (NEG,<30 MG/DL) >=300 H Urine Ketones (NEG) 15 H Urine Nitrite (NEG) POS H Urine Bilirubin (NEG) NEG Urine Urobilinogen (0.1 - 1.0 EU/dl) 2.0 H Ur Leukocyte Esterase (NEG) MOD H Ur Microscopic SEDIMENT EXAMINED Urine RBC (0 - 5 /HPF) PACKD H Urine WBC (0 - 2 /HPF) 50-75 H Ur Epithelial Cells (NONE,FEW) FEW Urine Bacteria (NEG/NONE) RARE H Urine Hemoglobin (NEG) LARGE H Urine Glucose (N MG/DL) 500 H Assessment/Plan Assessment/Plan Imp: 1. L pyelonephritis with L hydro-ureteronephrosis of unclear etiology 2. DM and HTN Plan: 1. In view of fever, leukocytosis, L hydronephrosis and DM L ureteral stent is planned to assure adequate drainage of L kidney. Risks, benefits, alternatives and possible complications discussed in detail with patient. 2. Will schedule for cysto and L ureteral stent insertion for this morning. Please keep npo except for sips of water with meds Consult Acknowledgment - Thank you for your consult request.
[2016-12-16 08:24] LABS: ABSOLUTE BASOPHIL COUNT 0 /CUMM (0.0-0.2); ABSOLUTE EOSINOPHIL COUNT 0 /CUMM (0.0-0.7); ABSOLUTE LYMPH COUNT 0.3 /CUMM (1.2-3.4); ABSOLUTE MONOCYTE COUNT 0.2 /CUMM (0.10-0.60); BASOPHIL % 0 % (0.0-2.0); RED BLOOD CELL CT 4.59 /CUMM (4.20-5.40)
--- NOTE | 2016-12-16 08:37 | NUR ---
LATE ENTRY FOR 12/15/16 2130 PT ARRIVED TO RM 216-2 FROM THE ER. PT AOX3. PT SETTLED INTO ROOM/SURROUNDINGS. BED ALARM IN USE/CALL CASTELAN IN REACH.
[2016-12-16 08:50] LABS: ABSOLUTE GRANULOCYTE CT 10.1 /CUMM (1.4-6.5); EOSINOPHIL % 0 % (0-5); GRANULOCYTE % 95.1 % (42.2-75.2); MEAN CORPUSCULAR HGB 25.2 PG (27.0-31.0); MEAN CORPUSCULAR HGB CONC 32.3 G/DL (33.0-37.0); MEAN PLATELET VOLUME 10.4 FL (7.4-10.4); PLATELET COUNT 156 /CUMM (130-400); RBC DISTRIBUTION WIDTH 15.6 % (11.5-14.5); WHITE BLOOD CELL COUNT 10.6 /CUMM (4.8-10.8)
[2016-12-16 08:57] LABS: HEMATOCRIT 35.9 % (37-47)
--- NOTE | 2016-12-16 10:10 | PN- Urology ---
Surgical Brief Attending Note Brief Attending Note: Patient underwent cystoscopy and insertion of L ureteral stent with the following findings: 1. Markedly abnormal bladder, likely due to cystitis 2. 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 Urine culture taken from L kidney Plan: 1. Leave freeman in place today and may remove in AM 2. Continue present abx 3. f/u cultures 4. May start diet this afternoon if patient feels well
--- NOTE | 2016-12-16 10:32 | Operative Report ---
Operative/Inv Procedure Report Surgery Date: 12/16/16 Name of Procedure: cystoscopy and insertion of L ureteral stent Pre-Operative Diagnosis: L pyelonephritis with L hydronephrosis Post-Operative Diagnosis: same and cystitis Estimated Blood Loss: scant Surgeon/Area Director: KILO Weller MD, AARTEE Anesthesia: moderate sedation Drains: 24 cm, 6 fr L double J ureteral stent and 16 fr freeman Specimens: Urine culture from L kidney Complications: none Condition: fair Operative Indication: Fever, leukocytosis, UTI, L hydro-ureteronephrosis and hx of Diabetes Operative/Procedure Note Note: The patient was taken to the OR and identified. She was placed in the supine position on the table and a time out executed appropriately. IV sedation was given. She was placed in the dorsal lithotomy position and prepped and draped in the usual manner for cystoscopy. A surgical pause was executed appropriately. A flouroscopy image was taken with a marker on the L side of the abdomen to confirm the correct side of the surgery and the correct orientation of the flouroscopy image. The 22 fr cystoscopy was placed in the bladder. There was debri which was irrigated out. The bladder appeared abnormal and was most consistent with severe cystitis. The left ureteral orifice was identified and a guide wire placed up to the area of the left kidney. An open ended catheter was placed over the wire and the wire removed. A small hydronephrotic drip was seen. A specimen was collected for culture. Some contrast was injected to outline the left renal collecting system. It was a bifid system which was mildly dilated, especially the lower pole. The guidewire was placed back through the open ended catheter and under visual and flouroscopic control a 24 cm, 6 fr double J stent was placed over the wire, which was removed. Flouroscopy showed the proximal end of the stent coiled in the L renal pelvis and the distal end coiled in the bladder. A freeman was placed. Findings: bifid L renal collecting system with mild dilation Discharge Disposition: PACU
[2016-12-16 12:00] VITALS: BP 128/78
--- NOTE | 2016-12-16 12:06 | RADIOLOGY REPORT ---
EXAMINATION: FL ABDOMEN CLINICAL INDICATION: Left ureteral stent placement. COMPARISON: CT scan of the abdomen and pelvis from yesterday. TECHNIQUE: Fluoroscopic guidance was provided for left retrograde exam and ureteral stent placement. 17 fluoroscopic images are submitted. FLUOROSCOPY TIME: 46 seconds KVP: 113 MAS: 2.21 FINDINGS: There is [id number] left hydronephrosis. There is a bifid left renal pelvis. The visualized left ureter appears dilated. No definite stone is seen. Final images demonstrate placement of a left internal ureteral stent in satisfactory position. IMPRESSION: Fluoroscopic guidance for left retrograde exam and ureteral stent placement.
--- NOTE | 2016-12-16 13:58 | NUR ---
PT WENT TO OR AT 0900 VIA DISTRABUTION BY STRETCHER. RECEIVED REPORT FROM OR NURSE VARGAS. PT ARRIVED BACK TO FLOOR AT 1200. VSS; DENIED PAIN; IV INTACT WITH D5 1/2NS 20 MEQ KCL RUNNING AT 100ML/HR. NO N/V; PATIENT EATING LUNCH AND TOLERATING WELL. WILL CONTINUE TO MONITOR.
[2016-12-16 14:29] VITALS: BP 132/70
[2016-12-16 22:32] VITALS: BP 122/82
[2016-12-17 06:23] VITALS: BP 140/72
--- NOTE | 2016-12-17 07:48 | PN- Urology ---
Subjective Subjective: Feels better Objective Vital Signs and I&Os Vital Signs Date Time Temp Pulse Resp B/P Pulse O2 O2 Flow FiO2 Ox Delivery Rate 12/17 0623 100.7 106 20 140/72 97 Nasal 2.0L Cannula 12/17 0532 97 Nasal 2.0L Cannula 12/17 0140 100.6 12/17 0050 102.5 12/17 0000 100.6 12/16 2232 102.5 102 18 122/82 92 Room Air 12/16 1429 98.7 89 18 132/70 92 Room Air 12/16 1231 93 124/84 12/16 1231 93 124/84 12/16 1200 98.6 94 20 128/78 94 Room Air 12/16 0824 99.7 118 12/16 0748 100.7 123 20 118/60 92 Room Air Intake & Output 12/17 0800 12/17 0000 12/16 1600 12/16 0800 12/16 0000 12/15 1600 Intake Total 240 640 880 60 720 Output Total 465 009 3867 200 250 Balance -710 -110 -520 -140 470 Intake, IV 400 400 350 Intake, Oral 240 240 480 60 370 Output, Urine 902 162 5287 200 250 Patient 234 lb 243 lb Weight Back: No CVA tenderness. L CVA tenderness has resolved Abd: soft and non tender Freeman draining blood-tinged urine Assessment/Plan Assessment/Plan Imp: 1. L pyelonephritis with mild L hydronephrosis. 2. s/p L ureteral stent insertion Plan: 1. Leave freeman today 2. continue abx 3. f/u urine cultures and adjust abx accordingly
--- NOTE | 2016-12-17 07:59 | NUR ---
0450 PT WITH C/O WHEEZING. DR Shruti SANTOS NOTIFIED. SEE ORDERS. RT TO EVAL THE PT. PT PLACED ON O2 2L NC/TRC. MOD DR MAURICIO HERE TO EVAL THE PT.
[2016-12-17 08:05] LABS: ABSOLUTE BASOPHIL COUNT 0 /CUMM (0.0-0.2); ABSOLUTE EOSINOPHIL COUNT 0 /CUMM (0.0-0.7); ABSOLUTE GRANULOCYTE CT 5.4 /CUMM (1.4-6.5); ABSOLUTE LYMPH COUNT 0.7 /CUMM (1.2-3.4); ABSOLUTE MONOCYTE COUNT 0.4 /CUMM (0.10-0.60); BASOPHIL % 0.2 % (0.0-2.0); EOSINOPHIL % 0.2 % (0-5); GRANULOCYTE % 81.9 % (42.2-75.2); HEMATOCRIT 32.3 % (37-47); MEAN CORPUSCULAR HGB 25.2 PG (27.0-31.0); MEAN CORPUSCULAR HGB CONC 32.6 G/DL (33.0-37.0); MEAN CORPUSCULAR VOLUME 77.3 FL (81.0-99.0); MEAN PLATELET VOLUME 10.7 FL (7.4-10.4); PLATELET COUNT 150 /CUMM (130-400); RED BLOOD CELL CT 4.17 /CUMM (4.20-5.40); WHITE BLOOD CELL COUNT 6.6 /CUMM (4.8-10.8)
--- NOTE | 2016-12-17 10:08 | PN- Housestaff ---
[facility] 12[facility]17[facility]16 1008: Subjective Follow-up For: Urosepsis Subjective: Patient was spiking fever yesterday up to 102, his morning she is complaining of lower abdominal pain, and mild back pain. She denies nausea, vomiting or chills. Her temperature this morning is 101. Patient has a Fernandez catheter, patient has hematuria(status post stent) Review of Systems Constitutional: Reports: see HPI. Objective Last 24 Hrs of Vital Signs/I&O Vital Signs Date Time Temp Pulse Resp B/P Pulse O2 O2 Flow FiO2 Ox Delivery Rate 12/17 1048 Nasal 2.0L Cannula 12/17 1019 99.5 12/17 0920 101.3 12/17 0909 115 144/82 12/17 0909 115 144/82 12/17 0800 96 Nasal 2.0L Cannula 12/17 0623 100.7 106 20 140/72 97 Nasal 2.0L Cannula 12/17 0532 97 Nasal 2.0L Cannula 12/17 0450 90 Room Air 12/17 0140 100.6 12/17 0050 102.5 12/17 0000 100.6 12/16 2232 102.5 102 18 122/82 92 Room Air Intake & Output 12/17 1600 12/17 0800 12/17 0000 Intake Total 1280 640 Output Total 950 750 Balance 330 -110 Intake, IV 800 400 Intake, Oral 480 240 Output, Urine 950 750 Physical Exam General Appearance: Alert, Oriented X3, Cooperative, No Acute Distress Skin: No Rashes HEENT: Atraumatic, PERRLA, EOMI, Mucous Membr. moist/pink Cardiovascular: Regular Rate, Normal S1, Normal S2, No Murmurs Lungs: Clear to Auscultation Abdomen: Soft, tenderness in the suprapubic area Neurological: Normal Speech Extremities: No Edema Other Physical Findings: Left flank tenderness Assessment/Plan Assessment: 1.urosepsis with pyelonephritis Urine suggestive of UTI, CT; evidence of left grade 3 hydronephrosis with periurethral stranding /bladder wall thickening and a left UVJ region fat stranding. Patient had a stent placed yesterday. She started spiking fever last night and again this morning. * We will continue IV ceftriaxone * Patient will be given IV Tylenol * If continued spike fever we will switch antibiotic to ciprofloxacin * Pending Urine and blood cultures * We'll manage pain with Tylenol and morphine as needed 2.Aguilar: Most likely Postrenal obstruction caused by calculi. On presentation creatinine was 1.1. Her creatinine is Baseline 0.9. Post stent placement her creatinine improved to 0.7 mg/DL * Check BeP in a.m. * Avoid nephrotoxins * Holding Lasix, Lisinopril, PPI, NSAID 3. Diabetes mellitus * Hold home meds Janumet and insulin * On sliding scale * Diet consistent Carbohydrate 2 * 3 times a day Accu-Cheks 4. Hypertension/hyperlipidemia * Continue home meds atorvastatin and metoprolol . * Holding lisinopril for AGUILAR 5.Chronic back pain * Continue pain medication for mild/moderate and severe pain * Continue muscle relaxant and gabapentin Diet carbohydrate 2 Severe pain pathway Full code DVT prophylaxis Alps(hematuria) Problem List: 1. AGUILAR (acute kidney injury) 2. Pyelonephritis Pain Ratin Pain Location: Suprapubic pain Left flank Pain Goal: Remain pain free Pain Plan: See assessment and plan Tomorrow's Labs & Rationales: CBC and BEP FRANCHESCA TALBERT MD 12/17/16 1407: Attending MD Review Statement Attending Statement Attending MD Statement: examined this patient, discuss w/resident/PA/BOILER REPAIR SUPERVISOR, agreed w/resident/PA/BOILER REPAIR SUPERVISOR, discussed with nursing Attending Assessment/Plan: The patient was seen and discussed with house staff. Had temp spike to 101, however may have been related to transient bacteremia post stent. WBC decreased. Will observe on Ceftriaxone. If spikes again consider change Abx to Cipro IV. Await cultures. FRANCHESCA TALBERT MD 12/17/16 1407: Attending MD Review Statement Attending Statement Attending MD Statement: examined this patient, discuss w/resident/PA/BOILER REPAIR SUPERVISOR, agreed w/resident/PA/BOILER REPAIR SUPERVISOR, discussed with nursing Attending Assessment/Plan: The patient was seen and discussed with house staff. Had temp spike to 101, however may have been related to transient bacteremia post stent. WBC decreased. Will observe on Ceftriaxone. If spikes again consider change Abx to Cipro IV. Await cultures.
[2016-12-17 15:03] VITALS: BP 126/72
[2016-12-17 22:16] VITALS: BP 122/78; BP 142/94
--- NOTE | 2016-12-17 22:35 | NUR ---
PT C/O SOB, O2 SATS 98%, SOME DISTRESS RT PAGED, TO GIVE PT TREATMENT
[2016-12-18 06:52] VITALS: BP 138/92
--- NOTE | 2016-12-18 07:28 | PN- Housestaff ---
See Addendum CARLOS SHELL,ISMSIL 12/18/16 0728: Subjective Follow-up For: Urosepsis Subjective: Patient still has mild fever around 100.2. However she reported significant improvement in her pain. No acute overnight events reported. Her blood pressure is stable but a little bit high. Patient still has hematuria coming out of her catheter. Review of Systems Constitutional: Denies: chills, fever. EENTM: Reports: see HPI. Cardiovascular: Denies: chest pain, palpitations. Respiratory: Reports: no symptoms. Gastrointestinal: Reports: abdominal pain. Genitourinary: Reports: see HPI. Objective Last 24 Hrs of Vital Signs/I&O Vital Signs Date Time Temp Pulse Resp B/P Pulse O2 O2 Flow FiO2 Ox Delivery Rate 12/18 0657 100.2 12/18 0652 101.3 100 20 138/92 95 12/18 0000 Nasal 2.0L Cannula 12/17 2238 98 Nasal 2.0L Cannula 12/17 2216 98.1 94 20 142/94 96 Nasal 4.0L Cannula 12/17 1503 98.4 90 20 126/72 97 Nasal 2.0L Cannula 12/17 1048 Nasal 2.0L Cannula 12/17 1019 99.5 12/17 0920 101.3 12/17 0909 115 144/82 12/17 0909 115 144/82 Intake & Output 12/18 1600 12/18 0800 12/18 0000 Intake Total 800 1400 Output Total 1225 1750 Balance -425 -350 Intake, IV 800 800 Intake, Oral 600 Number 1 1 Bowel Movements Output, Urine 1225 1750 Physical Exam General Appearance: Alert, Oriented X3, Cooperative, No Acute Distress Skin: No Rashes HEENT: Atraumatic, PERRLA, EOMI, Mucous Membr. moist/pink Cardiovascular: Regular Rate, Normal S1, Normal S2, No Murmurs Lungs: Clear to Auscultation Abdomen: Soft, lower quadrant tenderness(significantly improved since yesterday) Neurological: Normal Speech Extremities: No Edema Current Medications: Current Medications Sig/Marilia Start time Last Medication Dose Route Stop Time Status Admin Acetaminophen 1,000 MG Q6P PRN 12/16 2130 AC 12/17 N/A 1 UNIT IV 0920 Acetaminophen 325 MG Q6 PRN 12/15 1845 DC PO Albuterol Sulfate 3 ML Q4P PRN 12/17 1100 AC INH Amlodipine Besylate 10 MG DAILY 12/16 1000 AC 12/17 PO 0909 Aspirin Buffered 81 MG DAILY 12/16 1000 AC 12/17 PO 0904 Atorvastatin Calcium 10 MG DAILY 12/16 1000 AC 12/17 PO 0904 Ceftriaxone Sodium 1,000 MG DAILY@1930 12/16 1930 AC 12/17 IV 2039 Cyclobenzaprine HCl 10 MG TID PRN 12/15 2015 AC 12/16 PO 2117 Gabapentin 300 MG TID 12/15 2200 AC 12/17 PO 2044 Heparin Sodium 5,000 UNIT Q8 12/16 1400 AC 12/18 (Porcine) SC 0616 Insulin Aspart 0 TIDAC 12/16 1230 AC 12/18 SC 0820 Metoprolol Succinate 100 MG DAILY 12/16 1000 AC 12/17 PO 0909 Morphine Sulfate 2 MG Q4P PRN 12/15 1845 AC 12/18 IV 0339 Oxycodone HCl 10 MG Q6P PRN 12/15 1845 AC 12/18 PO 0615 Potassium Chloride 20 MEQ Q10H 12/16 1100 AC 12/18 Dextrose/Sodium 1,000 ML IV 0336 Chloride Last 24 Hrs of Lab/Michael Results Last 24 Hrs of Labs/Mics: Laboratory Tests 12/18/16 0638: Sodium Pending, Potassium Pending, Chloride Pending, Carbon Dioxide Pending, Anion Gap Pending, BUN Pending, Creatinine Pending, BUN/Creatinine Ratio Pending , CBC w Diff Pending, WBC Pending, RBC Pending, Hgb Pending, Hct Pending, MCV Pending, MCH Pending, RDW Pending, Plt Count Pending, MPV Pending, PUBS MCHC Pending Microbiology 12/17 1050 URINE ROUT: Urine Culture - RES 12/17 0941 URINE OR: Urine Culture - CAN Cancelled: Cancelled via OE: Duplicate Order Assessment/Plan Assessment: 1.urosepsis with pyelonephritis Urine suggestive of UTI, CT; evidence of left grade 3 hydronephrosis with periurethral stranding /bladder wall thickening and a left UVJ region fat stranding. Patient had a stent placed on admission. Postprocedure patient spike a fever to 102, yesterday she had a fever of 100.2. However all other symptom significantly improve * We will continue IV ceftriaxone for now * Pending Urine and blood cultures * We'll manage pain with Tylenol and morphine as needed * We will DC Fernandez today as per urology 2.Flory: Most likely Postrenal obstruction caused by calculi. On presentation creatinine was 1.1. creatinine improved to 0.7 mg/DL with stent, fluid and antibiotic * Avoid nephrotoxins * Holding Lasix, Lisinopril, PPI, NSAID 3. Diabetes mellitus * Hold home meds Janumet and insulin * On sliding scale * Diet consistent Carbohydrate 2 * 3 times a day Accu-Cheks 4. Hypertension/hyperlipidemia * Continue home meds atorvastatin and metoprolol . * Holding lisinopril for FLORY at presentation 5.Chronic back pain * Continue pain medication for mild/moderate and severe pain * Continue muscle relaxant and gabapentin Diet carbohydrate 2 Severe pain pathway Full code DVT prophylaxis Alps(hematuria) Problem List: 1. Pyelonephritis 2. FLORY (acute kidney injury) 3. Diabetes mellitus Pain Ratin Pain Location: Left lower quadrant and left flank Pain Goal: Remain pain free Pain Plan: See assessment and plan Tomorrow's Labs & Rationales: FEMI YANCEY MD,KAELA 12/18/16 1307: Attending MD Review Statement Attending Statement Attending MD Statement: examined this patient, discuss w/resident/PA/DIRECTOR ASSET, agreed w/resident/PA/DIRECTOR ASSET, reviewed EMR data (avail), discussed with nursing, discussed with case mgmt, reviewed images, amended to note Attending Assessment/Plan: patient seen and examined, doing okay. She still had a fever spike this morning. She did complain of some abdominal pain in the bilateral groin area. Vital Signs Date Time Temp Pulse Resp B/P Pulse O2 O2 Flow FiO2 Ox Delivery Rate 12/18 1235 96 142/96 12/18 0954 102 154/96 12/18 0954 102 154/96 12/18 0657 100.2 12/18 0652 101.3 100 20 138/92 95 12/18 0000 Nasal 2.0L Cannula 12/17 2238 98 Nasal 2.0L Cannula 12/17 2216 98.1 94 20 142/94 96 Nasal 4.0L Cannula 12/17 1503 98.4 90 20 126/72 97 Nasal 2.0L Cannula on exam; aox3, nad. cv; s1,s2, rrr resp; clear abd; soft, non tender, bs+ ext; no edema. Laboratory Tests 12/18 0638 Chemistry Sodium (137 - 145 mmol/L) 132 L Potassium (3.5 - 5.1 mmol/L) 4.2 Chloride (98 - 107 mmol/L) 100 Carbon Dioxide (22 - 30 mmol/L) 25 Anion Gap (5 - 16) 7 BUN (7 - 17 mg/dL) 4 L Creatinine (0.5 - 1.0 mg/dL) 0.6 Estimated GFR (>60 ml/min) > 60 BUN/Creatinine Ratio (7 - 25 %) 6.7 L Hematology CBC w Diff NO MAN DIFF REQ WBC (4.8 - 10.8 /CUMM) 7.7 RBC (4.20 - 5.40 /CUMM) 4.27 Hgb (12.0 - 16.0 G/DL) 10.8 L Hct (37 - 47 %) 32.9 L MCV (81.0 - 99.0 FL) 77.0 L MCH (27.0 - 31.0 PG) 25.2 L RDW (11.5 - 14.5 %) 16.3 H Plt Count (130 - 400 /CUMM) 176 MPV (7.4 - 10.4 FL) 10.5 H Gran % (42.2 - 75.2 %) 74.9 Lymphocytes % (20.5 - 51.1 %) 15.4 L Monocytes % (1.7 - 9.3 %) 8.3 Eosinophils % (0 - 5 %) 1.1 Basophils % (0.0 - 2.0 %) 0.3 Absolute Granulocytes (1.4 - 6.5 /CUMM) 5.8 Absolute Lymphocytes (1.2 - 3.4 /CUMM) 1.2 Absolute Monocytes (0.10 - 0.60 /CUMM) 0.6 Absolute Eosinophils (0.0 - 0.7 /CUMM) 0.1 Absolute Basophils (0.0 - 0.2 /CUMM) 0 PUBS MCHC (33.0 - 37.0 G/DL) 32.7 L A/P; 55 y/o F with pmh sig for hypertension, hyperlipidemia, asthma, osteoarthritis, siatica, diabetes mellitus admitted with sepsis secondary to UTI , left pyelonephritis as well as found to have left hydronephrosis status post stent placement now. No renal calculi were identified on imaging but it is a possibility that the stone might have passed. We'll continue the current antibiotics and follow-up on cultures. We will stop the IV fluids after this bag. Patient has been complaining of some cough with sputum. Please check sputum culture. Patient was encouraged to get out of bed, ambulate as well as use incentive spirometry. Will resume her lisinopril. Continue other current medications. DVT prophylaxis: Heparin subcutaneous. If remains afebrile and continued to improve, will likely be discharged tomorrow.
--- NOTE | 2016-12-18 07:47 | PN- Urology ---
Subjective Subjective: No distress Objective Vital Signs and I&Os Vital Signs Date Time Temp Pulse Resp B/P Pulse O2 O2 Flow FiO2 Ox Delivery Rate 12/18 0657 100.2 12/18 0652 101.3 100 20 138/92 95 12/18 0000 Nasal 2.0L Cannula 12/17 2238 98 Nasal 2.0L Cannula 12/17 2216 98.1 94 20 142/94 96 Nasal 4.0L Cannula 12/17 1503 98.4 90 20 126/72 97 Nasal 2.0L Cannula 12/17 1048 Nasal 2.0L Cannula 12/17 1019 99.5 12/17 0920 101.3 12/17 0909 115 144/82 12/17 0909 115 144/82 12/17 0800 96 Nasal 2.0L Cannula Intake & Output 12/18 0800 12/18 0000 12/17 1600 12/17 0800 12/17 0000 12/16 1600 Intake Total 800 1400 1440 1280 640 880 Output Total 1225 1750 1750 178 343 0496 Balance -425 -350 -310 330 -110 -520 Intake, IV 800 800 600 800 400 400 Intake, Oral 600 840 480 240 480 Number 1 1 Bowel Movements Output, Urine 1225 1750 1750 650 237 6630 Spiked to 101.3 Back: no CVA tenderness Abd: soft and nontender Urine culture neg to date Laboratory Tests 12/18 637 Chemistry Sodium Pending Potassium Pending Chloride Pending Carbon Dioxide Pending Anion Gap Pending BUN Pending Creatinine Pending BUN/Creatinine Ratio Pending Hematology CBC w Diff Pending WBC Pending RBC Pending Hgb Pending Hct Pending MCV Pending MCH Pending RDW Pending Plt Count Pending MPV Pending PUBS MCHC Pending Assessment/Plan Assessment/Plan Imp: L pyelonephritis with mild L hydronephrosis s/p L ureteral stent DM Plan: Could remove freeman today f/u urine culture and adjust abx accordingly
[2016-12-18 08:22] LABS: ABSOLUTE BASOPHIL COUNT 0 /CUMM (0.0-0.2); ABSOLUTE EOSINOPHIL COUNT 0.1 /CUMM (0.0-0.7); ABSOLUTE GRANULOCYTE CT 5.8 /CUMM (1.4-6.5); ABSOLUTE LYMPH COUNT 1.2 /CUMM (1.2-3.4); ABSOLUTE MONOCYTE COUNT 0.6 /CUMM (0.10-0.60); BASOPHIL % 0.3 % (0.0-2.0); EOSINOPHIL % 1.1 % (0-5); GRANULOCYTE % 74.9 % (42.2-75.2); HEMATOCRIT 32.9 % (37-47); MEAN CORPUSCULAR HGB 25.2 PG (27.0-31.0); MEAN CORPUSCULAR HGB CONC 32.7 G/DL (33.0-37.0); MEAN PLATELET VOLUME 10.5 FL (7.4-10.4); PLATELET COUNT 176 /CUMM (130-400); RBC DISTRIBUTION WIDTH 16.3 % (11.5-14.5); RED BLOOD CELL CT 4.27 /CUMM (4.20-5.40); WHITE BLOOD CELL COUNT 7.7 /CUMM (4.8-10.8)
--- NOTE | 2016-12-18 11:01 | NUR ---
1022 TELLEZ OUT, 950 ML URINE, DUE TO VOID BY [id number]
[2016-12-18 15:40] VITALS: BP 146/90
--- NOTE | 2016-12-18 17:51 | Patient Discharge Instructions ---
Discharge Instructions General Discharge Information You were seen/treated for: Septicemia because of Urinary tract infection You had these procedures: Ureter stent placement Special Instructions: Please follow-up with your primary care doctor within on week Please follow-up with urology within 2 week Please come back if any symptom of fever, chills, abdominal pain, back pain, nausea or vomiting started again. Diet Continue normal diet: Yes Recommended Diet: Diabetic Activity Full Activity/No Limits: Yes Activity Self Limited: Yes Acute Coronary Syndrome Inclusion Criteria At DC or during hospital stay patient has or had the following: ACS DIAGNOSIS No Discharge Core Measures Meds if any: Prescribed or Continued at Discharge Meds if any: NOT Prescribed or Continued at Discharge Congestive Heart Failure Inclusion Criteria At DC or during hospital stay patient has or had the following: CHF DIAGNOSIS No Discharge Core Measures Meds if any: Prescribed or Continued at Discharge Meds if any: NOT Prescribed or Continued at Discharge Cerebrovascular accident Inclusion Criteria At DC or during hospital stay patient has or had the following: CVA/TIA Diagnosis No Discharge Core Measures Meds if any: Prescribed or Continued at Discharge Meds if any: NOT Prescribed or Continued at Discharge Venous thromboembolism Inclusion Criteria VTE Diagnosis No VTE Type NONE VTE Confirmed by (Test) NONE Discharge Core Measures - Per Current guidelines, there needs to be overlap - treatment for the first 5 days of Warfarin therapy. - If discharged on Warfarin prior to 5 days of - overlap therapy, the patient will need to be - assessed for post discharge needs including - *Post discharge parental anticoagulation - *Warfarin and/or parental anticoagulation education - *Follow up date to check INR post discharge At least 5 days overlap therapy as Inpatient No Meds if any: Prescribed or Continued at Discharge Note: Overlap Therapy is Warfarin and Anticoagulant Meds if any: NOT Prescribed or Continued at Discharge
[2016-12-18 22:37] VITALS: BP 128/86
[2016-12-19 06:32] VITALS: BP 142/86
--- NOTE | 2016-12-19 07:12 | PN- Urology ---
Subjective Subjective: No acute distress Objective Vital Signs and I&Os Vital Signs Date Time Temp Pulse Resp B/P Pulse O2 O2 Flow FiO2 Ox Delivery Rate 12/19 0632 98.2 97 20 142/86 96 12/19 0000 Room Air 12/18 2237 98.0 95 20 128/86 94 Room Air 12/18 2017 97 Room Air 12/18 2000 99.7 12/18 1716 Nasal 2.0L Cannula 12/18 1540 99.4 101 20 146/90 96 Nasal 2.0L Cannula 12/18 1405 95 Nasal 2.0L Cannula 12/18 1235 96 142/96 12/18 0954 102 154/96 12/18 0954 102 154/96 12/18 0800 97 Nasal 2.0L Cannula Intake & Output 12/19 0800 12/19 0000 12/18 1600 12/18 0800 12/18 0000 12/17 1600 Intake Total 340 0395 745 2827 1440 Output Total 1550 1225 1750 1750 Balance 340 -230 -425 -350 -310 Intake, IV 600 800 800 600 Intake, Oral 340 720 600 840 Number 1 1 Bowel Movements Output, Urine 1550 1225 1750 1750 Back: No CVA tenderness Abd: soft and non tender Fernandez out. Having urgency incontinence likely due to ureteral stent All cultures negative to date Assessment/Plan Assessment/Plan Imp: 1. Although cultures negative overall picture c/w L pyelonephritis with ? L hydro including cystoscopic findings c/w cystitis 2. s/p L ureteral stent insertion Plan: 1. Eventually treat with po abx for 7-10 days 2. Patient to be discharged with stent in place 3. Will eventually need L ureteroscopy to assess for any L ureteral obstruction as an out patient surgery in the future
--- NOTE | 2016-12-19 07:53 | PN- Housestaff ---
[facility] SHELL[facility] 12/19/16 0753: Subjective Follow-up For: Sepsis secondary to UTI Subjective: Afebrile overnight, no overnight events were reported. Patient reported significant improvement of her left lower quadrant and left flank pain. Patient only current complaint is urinary incontinence which she had prior to admission. Review of Systems Constitutional: Reports: no symptoms. Objective Last 24 Hrs of Vital Signs/I&O Vital Signs Date Time Temp Pulse Resp B/P Pulse O2 O2 Flow FiO2 Ox Delivery Rate 12/19 0632 98.2 97 20 142/86 96 12/19 0000 Room Air 12/18 2237 98.0 95 20 128/86 94 Room Air 12/18 2017 97 Room Air 12/18 2000 99.7 12/18 1716 Nasal 2.0L Cannula 12/18 1540 99.4 101 20 146/90 96 Nasal 2.0L Cannula 12/18 1405 95 Nasal 2.0L Cannula 12/18 1235 96 142/96 12/18 0954 102 154/96 12/18 0954 102 154/96 Intake & Output 12/19 1600 12/19 0800 12/19 0000 Intake Total 340 Output Total Balance 340 Intake, Oral 340 Physical Exam General Appearance: Alert, Oriented X3, Cooperative, No Acute Distress Skin: No Rashes HEENT: Atraumatic, PERRLA, EOMI, Mucous Membr. moist/pink Cardiovascular: Regular Rate, Normal S1, Normal S2, No Murmurs Lungs: Clear to Auscultation Abdomen: Soft, No Tenderness Neurological: Normal Speech Extremities: No Edema Current Medications: Current Medications Sig/Marilia Start time Last Medication Dose Route Stop Time Status Admin Acetaminophen 650 MG Q4P PRN 12/18 1030 AC PO Acetaminophen 1,000 MG Q6P PRN 12/16 2130 DC 12/17 N/A 1 UNIT IV 0920 Albuterol Sulfate 3 ML Q4P PRN 12/17 1100 AC INH Amlodipine Besylate 10 MG DAILY 12/16 1000 AC 12/18 PO 0954 Aspirin Buffered 81 MG DAILY 12/16 1000 AC 12/18 PO 0953 Atorvastatin Calcium 10 MG DAILY 12/16 1000 AC 12/18 PO 0953 Calcium Carbonate 500 MG DAILY PRN 12/18 1600 AC PO Ceftriaxone Sodium 1,000 MG DAILY@1930 12/16 1930 AC 12/18 IV 2008 Cyclobenzaprine HCl 10 MG TID PRN 12/15 2015 AC 12/16 PO 2117 Gabapentin 300 MG TID 12/15 2200 AC 12/18 PO 2152 Heparin Sodium 5,000 UNIT Q8 12/16 1400 AC 12/19 (Porcine) SC 0509 Insulin Aspart 0 TIDAC 12/16 1230 AC 12/18 SC 1710 Lisinopril 40 MG DAILY 12/18 1002 AC 12/18 PO 1235 Metoprolol Succinate 100 MG DAILY 12/16 1000 AC 12/18 PO 0954 Morphine Sulfate 2 MG Q4P PRN 12/15 1845 AC 12/19 IV 0510 Oxycodone HCl 10 MG Q6P PRN 12/15 1845 AC 12/18 PO 1940 Patient Medication 1 ED .STK-MED ONE 12/18 1331 DC Teaching ED 12/18 1332 Potassium Chloride 20 MEQ Q10H 12/16 1100 DC 12/18 Dextrose/Sodium 1,000 ML IV 0336 Chloride Last 24 Hrs of Lab/Michael Results Last 24 Hrs of Labs/Mics: Laboratory Tests 12/19/16 0735: Sodium Pending, Potassium Pending, Chloride Pending, Carbon Dioxide Pending, Anion Gap Pending, BUN Pending, Creatinine Pending, BUN/Creatinine Ratio Pending , CBC w Diff Pending, WBC Pending, RBC Pending, Hgb Pending, Hct Pending, MCV Pending, MCH Pending, RDW Pending, Plt Count Pending, MPV Pending, PUBS MCHC Pending Microbiology 12/19 2015 STOOL: Clostridium difficile Toxin A & B - COLB 12/18 1016 LOWER RESP: Respiratory Culture - COLB 12/18 1016 LOWER RESP: Gram Stain - COLB Assessment/Plan Assessment: 1.sepsis secondary to UTI and pyelonephritis On admission Urine suggestive of UTI, CT; evidence of left grade 3 hydronephrosis with periurethral stranding /bladder wall thickening and a left UVJ region fat stranding. Patient had a stent placed on admission. Postprocedure patient spike a fever to 102, yesterday she had a fever of 100.2 since 6 AM yesterday she is been afebrile. Urine and blood culture still negative on day 3. * We will switch IV ceftriaxone to Cefpodoxime oral 100 BID to finish a course of 14 days * Pending Urine and blood cultures * We'll manage pain with Tylenol as needed 2.Flory: Most likely Postrenal obstruction. On presentation creatinine was 1.1. creatinine improved to 0.7 mg/DL with stent, fluid and antibiotic * Avoid nephrotoxins 3. Diabetes mellitus * Continue holding home meds Janumet and insulin * On sliding scale * Diet consistent Carbohydrate 2 * 3 times a day Accu-Cheks 4. Hypertension/hyperlipidemia * Continue home meds atorvastatin and metoprolol . * We started lisinopril yesterday(was held because of FLORY) 5.Chronic back pain * Continue pain medication for mild/moderate and severe pain * Continue muscle relaxant and gabapentin Diet carbohydrate 2 Severe pain pathway Full code DVT prophylaxis Alps(hematuria) Problem List: 1. Pyelonephritis 2. FLORY (acute kidney injury) 3. Diabetes mellitus Pain Ratin Pain Location: Left lower quadrant and left flank Pain Goal: Remain pain free Pain Plan: See assessment and plan Tomorrow's Labs & Rationales: See assessment and plan KAELA YANCEY MD 12/19/16 1204: Attending MD Review Statement Attending Statement Attending MD Statement: examined this patient, discuss w/resident/PA/FLEET OPERATIONS MANAGER, agreed w/resident/PA/FLEET OPERATIONS MANAGER, reviewed EMR data (avail), discussed with nursing, discussed with case mgmt, amended to note Attending Assessment/Plan: Patient seen and examined, overall feeling much better. Her catheter was discontinued yesterday and now she's having some urinary incontinence. She claims that this was the case before but because of the urinary catheter this was likely exacerbated. Patient remains afebrile with white count normal. She has no abdominal tenderness on abdominal exam. A/P; 55 y/o F with pmh sig for hypertension, hyperlipidemia, asthma, osteoarthritis, siatica, diabetes mellitus admitted with sepsis secondary to UTI , left pyelonephritis as well as found to have left hydronephrosis status post stent placement now. No renal calculi were identified on imaging but it is a possibility that the stone might have passed. At this point we'll switch her to oral antibiotics and complete a total of 14 day course for pyelonephritis treatment. Patient recently had according to physical therapy evaluation. From medical standpoint she can be discharged to rehabilitation if there is a bed available. We'll continue the rest of her home medications. DVT px: Heparin subcutaneous.
[2016-12-19 08:12] LABS: ABSOLUTE BASOPHIL COUNT 0 /CUMM (0.0-0.2); ABSOLUTE EOSINOPHIL COUNT 0.2 /CUMM (0.0-0.7); ABSOLUTE GRANULOCYTE CT 5.5 /CUMM (1.4-6.5); ABSOLUTE LYMPH COUNT 1.4 /CUMM (1.2-3.4); ABSOLUTE MONOCYTE COUNT 0.8 /CUMM (0.10-0.60); BASOPHIL % 0.5 % (0.0-2.0); EOSINOPHIL % 2.3 % (0-5); GRANULOCYTE % 69.5 % (42.2-75.2); HEMATOCRIT 31.7 % (37-47); MEAN CORPUSCULAR HGB 25.2 PG (27.0-31.0); MEAN CORPUSCULAR HGB CONC 32.9 G/DL (33.0-37.0); MEAN CORPUSCULAR VOLUME 76.7 FL (81.0-99.0); MEAN PLATELET VOLUME 10.5 FL (7.4-10.4); PLATELET COUNT 196 /CUMM (130-400); RBC DISTRIBUTION WIDTH 15.7 % (11.5-14.5); RED BLOOD CELL CT 4.14 /CUMM (4.20-5.40); WHITE BLOOD CELL COUNT 7.9 /CUMM (4.8-10.8)
[2016-12-19] MEDS ORDERED: CEFPODOXIME PR100 MG PO (08:54)
--- NOTE | 2016-12-19 10:46 | Discharge Summary ---
Visit Information Visit Dates Admission Date: 12/15/16 Discharge Date: 12/20/2016 Hospital Course Course Attending Physician: KAELA YANCEY MD Primary Care Physician: JEFFREY ESQUIVEL APRN Consulting Request: Consulting Specialty: Urology Consulting Physician: Dr. Weller Hospital Course: Patient is a 55-year-old female with past medical history of hypertension, hyperlipidemia, asthma, osteoarthritis, siatica, diabetes mellitus presented to the ED with a chief complaint of abdominal pain, worsening nausea and blood in urine. In the ED Vitals: Temperature 96.6, pulse 118, respiration 18, blood pressure 121/79, saturating 95% on room air Pertinent labs showed white count of 19.9 no bands, H&H of 14.5/44.7, sodium 135 , potassium 3.7, creatinine 1.1(baseline 0.9), glucose 262, lactic acid pending, normal LFTs. UA: Bloody, tarry., Positive nitrite, moderate leukocyte esterase, 50-75 WBC, large hemoglobin, increased RBCs, glucose 500, protein more than 300. Abdominal pelvis CT:Left grade 3 hydronephrosis with left periureteral stranding. No discrete calculi are identified; however, there is bladder wall thickening and a left UVJ region fat stranding. This appearance is nonspecific, but could correspond to a recently passed stone, inflammatory process or a mass lesion within the distal left ureter. Patient was given 4 L normal saline boluses, IV Toradol and IV Zofran along with IV ceftriaxone in the ED. She was admitted on general medicine floor for sepsis secondary to left pyelonephritis with mild left hydro-nephrosis. IV ceftriaxone was continued. She was seen by a urologist, Dr. Weller. She had cystoscopy and insertion of left ureteral stent on 12/16/[address] Weller. Blood and urine cultures were sent. Initially Fernandez was placed. She did not have any further episode of hematuria. Fernandez was removed after 2 days. Her H&H was stable throughout hospitalization. Blood cultures and urine cultures remained negative. She was also seen by physical therapy and they recommended short-term rehabilitation upon discharge. She was discharged with stent in place. She was advised to see Dr. Weller as an outpatient. Per Dr. Weller she will eventually need left ureteroscopy to assess for any distal ureteral obstruction as an outpatient and surgery in the future. Her IV antibiotics were discontinued and she was discharged on by mouth antibiotics, cefpodoxime. She complained of urinary frequency and incontinence javad after removing Fernandez. Dr. Weller recommended followup in 2 weeks. She was stable upon discharge. Allergies: Coded Allergies: NO KNOWN ALLERGIES (02/17/13) Disposition Summary Disposition Principal Diagnosis: Left pyelonephritis with mild left hydronephrosis Additional Diagnosis: none Discharge Disposition: STR Discharge Instructions General Discharge Information Code Status: Full Code Patient's Diet: Diabetic diet Patient's Activity: With assistance Follow-Up Instructions/Appts: 1. Please follow-up with your primary care provider next week after discharge 2. Please follow-up with Dr. Weller next week after discharge Medications at Discharge Discharge Medications: Continue taking these medications: Amlodipine Besylate (Amlodipine Besylate) 10 MG TABLET 1 Tablet ORAL DAILY Qty = 90 Metoprolol Succinate (Metoprolol Succinate) 100 MG TAB.ER.24H 1 Tablet ORAL DAILY Qty = 90 Gabapentin (Gabapentin) 300 MG CAPSULE 1 Capsule ORAL THREE TIMES DAILY Qty = 90 Insulin Glargine,Hum.rec.anlog (Lantus Solostar) 100 UNIT/ML (3 ML) INSULN.PEN 35 Unit Inject into fatty tissue Every night Qty = 15 Lisinopril (Lisinopril) 40 MG TABLET 1 Tablet ORAL DAILY Qty = 90 Cyclobenzaprine HCl (Cyclobenzaprine HCl) 10 MG TABLET 1 Tablet ORAL THREE TIMES DAILY as needed for MUSCLE SPASMS Qty = 90 Celecoxib (Celebrex) 100 MG CAPSULE 1 Capsule ORAL TWICE DAILY Qty = 60 Aspirin (Ecotrin*) 81 MG TABLET.DR 1 Tablet ORAL DAILY Sitagliptin Phos/Metformin HCl (Janumet 50-1,000 MG Tablet) 50 MG-1,000 MG TABLET 1 Tablet ORAL TWICE DAILY Qty = 180 Potassium Chloride (Potassium Chloride) 10 MEQ TABLET.ER 1 Tablet ORAL DAILY Qty = 90 Furosemide (Furosemide) 40 MG TABLET 1 Tablet ORAL DAILY Qty = 90 Atorvastatin Calcium (Atorvastatin Calcium) 10 MG TABLET 1 Tablet ORAL DAILY Qty = 90 Esomeprazole (Nexium) 40 MG CAPSULE.DR 1 Capsule ORAL DAILY Qty = 30 Start taking the following new medications: Cefpodoxime Proxetil (Cefpodoxime Proxetil) 100 MG TABLET 1 Tablet ORAL TWICE DAILY Qty = 18 No Refills Copies To: BREN SHELL,ELMIRA Arrington; JEFFREY ESQUIVEL APRN
[2016-12-19 14:44] VITALS: BP 152/72
[2016-12-19 22:29] VITALS: BP 162/70
[2016-12-20 06:51] VITALS: BP 159/73
--- NOTE | 2016-12-20 07:16 | PN- Urology ---
Subjective Subjective: Pt sleeping Objective Vital Signs and I&Os Vital Signs Date Time Temp Pulse Resp B/P Pulse O2 O2 Flow FiO2 Ox Delivery Rate 12/20 0651 98.7 101 18 159/73 91 Room Air 12/19 2229 98.6 100 18 162/70 91 12/19 1444 98.0 98 20 152/72 96 Room Air 12/19 0847 140/80 12/19 0847 140/80 12/19 0847 140/80 12/19 0837 95 Room Air Intake & Output 12/20 0800 12/20 0000 12/19 1600 12/19 0800 12/19 0000 12/18 1600 Intake Total 679 356 9582 340 1320 Output Total 1120 1550 Balance 400 065 6281 340 -230 Intake, IV 10 600 Intake, Oral 961 064 1063 340 720 Number 1 2 Bowel Movements Output, Urine 1120 1550 All cultures negative Assessment/Plan Assessment/Plan Imp: L pyelonephritis with mild L hydronephrosis. Improved. Interestingly all cultures negative s/p L ureteral stent placement Plan: Would treat for 1 week with oral abx Office f/u after discharge. Will likely need L ureteroscopy to definitively r/o obstruction before permanently removing stent
--- NOTE | 2016-12-20 07:25 | PN- Housestaff ---
See Addendum Subjective Follow-up For: Sepsis secondary to UTI status post stent placement Subjective: Afebrile, patient offers no current complaints, no overnight events reported. Patient looks relaxed and comfortable. Patient is due for discharge and just waiting for insurance approval for short-term rehabilitation. Review of Systems Constitutional: Denies: chills, fever, malaise, weakness. Cardiovascular: Denies: chest pain, palpitations. Respiratory: Denies: cough, short of breath, wheezing. Gastrointestinal: Denies: abdominal pain, constipation, diarrhea, nausea, vomiting. Genitourinary: Denies: dysuria, hematuria. Musculoskeletal: Denies: back pain. Objective Last 24 Hrs of Vital Signs/I&O Vital Signs Date Time Temp Pulse Resp B/P Pulse O2 O2 Flow FiO2 Ox Delivery Rate 12/20 0651 98.7 101 18 159/73 91 Room Air 12/19 2229 98.6 100 18 162/70 91 12/19 1444 98.0 98 20 152/72 96 Room Air 12/19 0847 140/80 12/19 0847 140/80 12/19 0847 140/80 12/19 0837 95 Room Air Intake & Output 12/20 0800 12/20 0000 12/19 1600 Intake Total 540 937 0438 Output Total 1120 Balance 719 413 8201 Intake, IV 10 Intake, Oral 023 891 3619 Number 1 2 Bowel Movements Output, Urine 1120 Physical Exam General Appearance: Alert, Oriented X3, Cooperative, No Acute Distress Skin: No Rashes HEENT: Atraumatic, PERRLA, EOMI, Mucous Membr. moist/pink Cardiovascular: Regular Rate, Normal S1, Normal S2, grade 2 systolic murmur more exsanguinated over the apex Lungs: Clear to Auscultation Abdomen: Soft, No Tenderness Neurological: Normal Speech Extremities: No Clubbing, No Cyanosis, No Edema Current Medications: Current Medications Sig/Marilia Start time Last Medication Dose Route Stop Time Status Admin Acetaminophen 650 MG Q4P PRN 12/18 1030 AC PO Albuterol Sulfate 3 ML Q4P PRN 12/17 1100 AC 12/19 INH 2002 Amlodipine Besylate 10 MG DAILY 12/16 1000 AC 12/19 PO 0847 Aspirin Buffered 81 MG DAILY 12/16 1000 AC 12/19 PO 0844 Atorvastatin Calcium 10 MG DAILY 12/16 1000 AC 12/19 PO 0844 Calcium Carbonate 500 MG DAILY PRN 12/18 1600 AC 12/19 PO 1410 Ceftriaxone Sodium 1,000 MG DAILY@0 12/20 1930 CAN IV Ceftriaxone Sodium 1,000 MG DAILY@12/19 1930 AC 12/19 IV 2002 Ceftriaxone Sodium 1,000 MG DAILY@12/16 1930 DC 12/18 IV 2008 Cyclobenzaprine HCl 10 MG TID PRN 12/15 2015 AC 12/19 PO 2300 Gabapentin 300 MG TID 12/15 2200 AC 12/19 PO 2305 Heparin Sodium 5,000 UNIT Q8 12/16 1400 AC 12/20 (Porcine) SC 0628 Insulin Aspart 0 TIDAC 12/16 1230 AC 12/19 SC 1729 Lisinopril 40 MG DAILY 12/18 1002 AC 12/19 PO 0847 Metoprolol Succinate 100 MG DAILY 12/16 1000 AC 12/19 PO 0847 Morphine Sulfate 2 MG Q4P PRN 12/15 1845 AC 12/20 IV 0631 Oxycodone HCl 10 MG Q6P PRN 12/15 1845 AC 12/18 PO 1940 Assessment/Plan Assessment: 1.sepsis secondary to upper UTI. On admission had UTI, CT; evidence of left grade 3 hydronephrosis with periurethral stranding . Patient had a stent placed on day 1. On IV ceftriaxone, she is afebrile since December 18, 6 AM. Her urine and blood culture remain negative, antibiotic started before culture was sent. She is c/o continuous urine incontinence. * We will switch IV ceftriaxone to Cefpodoxime oral 100 BID to finish a course of 14 days, as she present with upper UTI. * We'll manage pain with Tylenol as needed 2.Aguilar: (Resolved) * Avoid nephrotoxins as possible 3. Diabetes mellitus * Janumet on hold, on NovoLog, sliding scale , diabetic diet, and Accu-Cheks * will be discharged on her home antihyperglycemic meds 4. Hypertension/hyperlipidemia * Continue home meds atorvastatin, metoprolol, and lisinopril . 5.Chronic back pain * Continue pain medication for mild/moderate and severe pain * Continue muscle relaxant and gabapentin Diet carbohydrate 2 DVTppx hep SC & ALBS FC Problem List: 1. Diabetes mellitus 2. Pyelonephritis Pain Ratin Pain Location: Left lower quadrant and left flank pain Pain Goal: Remain pain free Pain Plan: Acetaminophen when necessary Tomorrow's Labs & Rationales: See assessment and plan Consulting Request: Consulting Specialty: Urology Consulting Physician: Dr. Weller Consulting Physician: Dr. Weller
[2016-12-20 13:58] VITALS: BP 159/73
[2016-12-20 14:17] VITALS: BP 145/66
== END 2016-12-20 15:00 | DRG 872 ==
LOC: ENRESERVDT → ENRESERVTM → ERH 14:56 → ERHI 19:26 → 2NB 19:26 → EDBEDREQ 19:35 → 2NB 21:17
PROVIDERS: Physician Assistant Medical; Student in an Organized Health Care Education/Training Program; ADMIT Internal Medicine
PROC: 0T778DZ Dilation of Left Ureter with Intraluminal Device, Via Natural or Artificial Opening Endoscopic (ICD-10-PCS; principal; 2016-12-16)
DX: A41.9 Sepsis, unspecified organism (principal); N13.30 Unspecified hydronephrosis; I10 Essential (primary) hypertension; N12 Tubulo-interstitial nephritis, not specified as acute or chronic; E78.5 Hyperlipidemia, unspecified; J45.909 Unspecified asthma, uncomplicated; M19.90 Unspecified osteoarthritis, unspecified site; E11.9 Type 2 diabetes mellitus without complications; Z79.4 Long term (current) use of insulin; M54.9 Dorsalgia, unspecified
CPT/HCPCS: 2NBSP; 36415; 74000; 74176; 81001; 82436; 87040; 87070; 87086; 93005; 93010; 96361; 96365; 96375; 97116-GO; 97161-GP; 97530-GO; C2617; J0131; J0696; J1644; J1885; J2405; J7042; J7508

== ENCOUNTER → 2017-01-22 | Day surgery (SDC) | payer OTHER ==
[~2017-01-22] VITALS: Ht 157.5 cm; Wt 106.1 kg
[~2017-01-22] MED LIST changes: +AMLODIPINE BESY10 M1 PO; +ASPIRIN EC81 M1 PO; +ATORVASTATIN CA10 M1 PO; +CEFPODOXIME PR100 MG PO; +CELEBREX100 M1 PO; +CYCLOBENZAPRINE10 M1 PO; +FUROSEMIDE40 M1 PO; +GABAPENTIN300 M2 PO; +JANUMET 50-1,01 EACH PO; +KEFLEX500 M1 PO; +LANTUS SOL100 UNIT/1 SC; +LISINOPRIL40 M1 PO; +METOPROLOL SUC100 M2 PO; +NEXIUM40 M1 PO; +POTASSIUM CHLO10 ME4 PO
--- NOTE | 2017-01-22 12:24 | Operative Report ---
Operative/Inv Procedure Report Surgery Date: 01/22/17 Name of Procedure: Cystoscopy, left ureteroscopy, left retrograde pyelogram with interpretation of films, exchange left double-J ureteral stent Pre-Operative Diagnosis: Left hydronephrosis Post-Operative Diagnosis: Same Estimated Blood Loss: scant Surgeon/Director Style: ELMIRA Astudillo MD Anesthesia: laryngeal mask airway Drains: 24 cm, 6 fr Left double J ureteral stent Specimens: urine C&S Complications: None Condition: Stable Operative Indication: This patient was admitted to the hospital in November [address]. CT scan without contrast showed grade 3 left hydroureteronephrosis down to the level of the bladder but no stone was seen. Was felt that she may have passed the stone. In any event the patient had signs of sepsis a left ureteral stent was placed. The patient did well following this. She is now scheduled for left ureteroscopy to rule out any obstruction to the left ureter. Operative/Procedure Note Note: The patient was taken to the cystoscopy room and identified. She is placed in supine position on the cystoscopy table. A timeout was executed appropriately with the patient awake. General anesthesia was induced via LMA. She was placed in the dorsolithotomy position pause was executed appropriately. Fluoroscopy image was taken with a marker on the left side of the abdomen to confirm the correct side of surgery as well as the correct orientation of the fluoroscopy image. The 22 [place] cystoscope sheath was placed into the bladder and cystoscopy performed. Other than some inflammation around the left ureteral orifice the bladder was normal. The distal end of the left ureteral stent was visualized. Urine specimen was obtained for culture. The distal end of the stent was grasped with a grasper and brought out the external urethral meatus. The guidewire was placed through the short semirigid ureteroscope was advanced through the urethra into the bladder into the left ureter. The left ureter was dilated. There was no evidence of obstruction of the left ureterovesical junction. Ureteroscope was advanced at the level of L3. Beyond this point could not be advanced further. The rigid ureteroscope was removed. A double- lumen dilating catheter was placed over the safety wire. A hydrophilic wire was placed through the second lumen of the double-lumen dilating catheter which was then removed. Hydrophilic wire which was then removed. The left renal pelvis was inspected. There was some dilation of the calyces in the upper pole. The collecting system was bifid but with 1 renal pelvis. All calyces were inspected. There is no evidence of tumor or stones. Next the left proximal ureter was inspected as ureteroscope was withdrawn. At the level of the ureteropelvic junction the ureter was somewhat tortuous 6 was most consistent with a chronic ureteropelvic junction obstruction. This area was inspected several times. There is no evidence of stone or tumor in the area. Remainder the ureter was inspected as ureteroscope was removed. Again ureter was dilated but without any evidence of obstruction. The cystoscope was backloaded onto the guidewire. Some contrast had been injected into the left renal collecting system through the ureteroscope before its removal. Under visual fluoroscopic control a 24 cm 6 [place] left double-J ureteral stent was placed with a long suture at this point. Fluoroscopy confirmed the proximal in stent coiled in the mid pole calyx of the distal and coiled in the bladder. The bladder was drained. The patient tolerated the procedure well and has completed was the recovery room in stable condition. Intraoperative dictation on Ginger Simms Findings: Left hydronephrosis with tortuous ureter at the level of the ureteropelvic junction most consistent with a chronic left ureteropelvic junction obstruction. The left ureter distal to this point was also dilated but not obstructed Discharge Disposition: PACU
--- NOTE | 2017-01-22 17:08 | RADIOLOGY REPORT ---
EXAMINATION: XR ABDOMEN CLINICAL INDICATION: Left ureteroscopy COMPARISON: CT abdomen and pelvis from 12/15/2016 TECHNIQUE: Fluoroscopic imaging of the left abdomen was utilized by Dr. Weller. FLUOROSCOPY TIME: 3.3 minutes. NUMBER OF IMAGES: 6 FINDINGS: Please refer to the operative report regarding the intraoperative findings and specific procedures performed. The left retrograde ureterography shows chronic mild left pelvocaliectasis. Patient reportedly underwent ureteroscopy and stent exchange. IMPRESSION: Fluoroscopic imaging assistance was provided to the operating room.
== END ==
LOC: STS 04:32
DX: N13.30 Unspecified hydronephrosis (principal); N13.8 Other obstructive and reflux uropathy; I10 Essential (primary) hypertension; E11.9 Type 2 diabetes mellitus without complications; Z79.4 Long term (current) use of insulin; J45.909 Unspecified asthma, uncomplicated
CPT/HCPCS: 74000; 87086; C2617; J0131; J0690; J2250

== ENCOUNTER 2017-02-18 15:52 | Emergency (ER) | payer OTHER ==
[~2017-02-18] VITALS: Ht 157.5 cm; Wt 111.1 kg
[~2017-02-18 15:52] MED LIST changes: -KEFLEX500 M1 PO
[2017-02-18 16:14] VITALS: BP 124/75
--- NOTE | 2017-02-18 17:21 | ED SKIN/ALLERGY COMPLAINT ---
History of Present Illness General Chief Complaint: Skin Rash/ Abcess Stated Complaint: ABCESS TO LEFT POSTERIOR THIGH Source: patient, family, old records Exam Limitations: no limitations Vital Signs & Intake/Output Vital Signs & Intake/Output Vital Signs Date Time Temp Pulse Resp B/P B/P Pulse O2 O2 Flow FiO2 Mean Ox Delivery Rate 02/18 1614 96.6 84 15 124/75 96 Room Air Room Air Allergies Coded Allergies: No Known Allergies (02/18/17) Reconcile Medications Amlodipine Besylate 10 MG TABLET 1 TAB PO DAILY BP (Reported) Aspirin (Ecotrin*) 81 MG TABLET.DR 1 TAB PO DAILY HEART/BLOOD (Reported) Atorvastatin Calcium 10 MG TABLET 1 TAB PO DAILY CHOLESTEROL (Reported) Cephalexin (Keflex) 500 MG CAPSULE 1 CAP PO TID cellulitis Cyclobenzaprine HCl 10 MG TABLET 1 TAB PO TID PRN MUSCLE SPASMS (Reported) Esomeprazole (Nexium) 40 MG CAPSULE.DR 1 CAP PO DAILY GI (Reported) Furosemide 40 MG TABLET 1 TAB PO DAILY DIURETIC/BP (Reported) Gabapentin 300 MG CAPSULE 1 CAP PO TID NERVE PAIN (Reported) Insulin Glargine,Hum.rec.anlog (Lantus Solostar) 100 UNIT/ML (3 ML) INSULN.PEN 35 UNIT SC QPM DM (Reported) Lisinopril 40 MG TABLET 1 TAB PO DAILY BP (Reported) Metoprolol Succinate 100 MG TAB.ER.24H 2 TAB PO DAILY HEART/BP (Reported) Potassium Chloride 10 MEQ TABLET.ER 1 TAB PO DAILY SUPPLEMENT (Reported) Sitagliptin Phos/Metformin HCl (Janumet 50-1,000 MG Tablet) 50 MG-1,000 MG TABLET 1 TAB PO BID DM (Reported) Sulfamethoxazole/Trimethoprim (Bactrim Ds Tablet) 800 MG-160 MG TABLET 1 TAB PO BID cellulits Triage Note: PT TO ED FOR ABCESS TO L POSTERIOR THIGH THAT PT NOTED YESTERDAY. PT REPORTS REDNESS TO AREA. DENIES FEVER OR CHILLS. ABCESS NOT VISUALIZED IN TRIAGE. Triage Nurses Notes Reviewed? yes Onset: Gradual Duration: day(s): (3), constant Timing: recent history Severity: mild, moderate Severity Numbers: 5 Location: extremities Possible Factors: no cause identified No Modifying Factors: none Associated Symptoms: denies HPI: 56-year-old female history of diabetes presents ER for evaluation playing of a questional spider bite or abscess to the left posterior thigh for the past 3 days. She states she's had history of similar symptoms in the past feels similar to her require incision and drainage. No fever no chills. Pain is worse with palpation she states her fianc was draining earlier. No modifying factors or associated symptoms at this time. No nausea no vomiting or abdominal pain. (AFUA LAZARO) Past History Travel History Traveled to [place] past 21 day No Medical History Any Pertinent Medical History? see below for history Neurological: NONE EENT: allergies Cardiovascular: hypertension, hyperlipidemia Respiratory: asthma Gastrointestinal: GERD Hepatic: NONE Renal: urinary incontinence, (PT USES DEPENDS AT HOME) Musculoskeletal: chronic back pain, falls, osteoarthritis, sciatica Psychiatric: NONE Endocrine: diabetes Blood Disorders: NONE Cancer(s): NONE PACKING ROOM SUPERVISOR/Reproductive: TUBAL LIGATION History of MRSA: No History of VRE: No History of CDIFF: No Influenza Vaccine: 07/01/16 Surgical History Surgical History: appendectomy, tubal ligation, TONSILLECTOMY Psychosocial History Who do you live with Family Services at Home None What is your primary language Yemeni Tobacco Use: Never used ETOH Use: denies use Illicit Drug Use: denies illicit drug use Family History Hx Contributory? No (AFUA LAZARO) Review of Systems Review of Systems Constitutional: Reports: see HPI. All Other Systems: Reviewed and Negative Comments Review of systems: See HPI, All other systems negative. Constitutional, no chills no fever, no malaise no weight loss HEENT: No visual changes no sore throat no congestion, no ear pain Cardiovascular: No chest pain , no palpitation , no orthopnea Skin: no rashes, no change in skin Respiratory: No dyspnea no cough no sputum no hemoptysis GI: No nausea no vomiting, no diarrhea, no bloating/constipation : No dysuria No hematuria, no frequency, no discharge Muscle skeletal: No joint pain, no joint swelling, no back pain, no neck pain, Neurologic: No numbness no confusion, no headache Psych: No stress no depression,. Heme/endocrine: No bruising no bleeding Immunology: No lymphadenopathy (AFUA LAZARO) Physical Exam Physical Exam General Appearance: well developed/nourished, no apparent distress, alert Comments: Well-developed well-nourished patient in no apparent distress. HEENT: Atraumatic, extraocular motion intact Neck: Supple, FROM Back: FROM Cardiovascular: Regular rate and rhythms no murmurs rubs or gallops, Respiratory: Chest nontender.There were no bony deformities, no asymmetry. No respiratory distress. Patient speaking in full complete sentences. Breath sounds clear to auscultation bilaterally: NO W/R/R Extremities: full range of motion Neuro: awake, alert, and oriented to person, place and time. There were no obvious focal neurologic abnormalities. Skin: Warm & dry; there is a 4 x 5 cm area of induration and erythema noted to the posterior left thigh no streaking up skin no fluctuance no drainage, no other rash to the exposed skin Psych: Mood affect normal, normal memory normal judgment. (AFUA LAZARO) Progress Differential Diagnosis: abscess/cellulitis, allergic reaction, contact dermatitis, drug reaction, erythema multiforme, lyme disease, urticaria Plan of Care: Patient clinically appears well nontoxic appearing afebrile there is no streaking up the skin no fluctuance requiring incision and drainage which I discussed with the patient at length about. I discussed with the patient at length all of their results. I had an extensive conversation regarding need for close follow up with their primary care physician this week as well as return precautions. I answered all of their questions, they feel comfortable with the plan and follow-up care. I discussed with the patient/family the medications that they will receive. I gave them signs and symptoms that could indicate an adverse reaction. I have advised them to limit their activities until they can see how they respond to the medication. (AFUA LAZARO) Departure Departure Time of Disposition: 1726 Disposition: HOME OR SELF CARE Condition: Stable Clinical Impression Primary Impression: Cellulitis Referrals: JEFFREY ESQUIVEL APRN (PCP/Family) Additional Instructions: bactrim and keflex as directed.epson salt baths as discussed. follow up with your pmd or retrun to the ER on sunday for wound check. return at anytime sooner with any concerns Departure Forms: Customer Survey General Discharge Information Prescriptions: Current Visit Scripts Sulfamethoxazole/Trimethoprim (Bactrim Ds Tablet) 1 TAB PO BID #14 TAB Cephalexin (Keflex) 1 CAP PO TID #30 CAP (AFUA LAZARO) PA/PLANNING ASSOCIATE Co-Sign Statement Statement: ED Attending supervision documentation- [] I saw and evaluated the patient. I have also reviewed all the pertinent lab results and diagnostic results. I agree with the findings and the plan of care as documented in the PA's/PLANNING ASSOCIATE's documentation. [X] I have reviewed the ED Record and agree with the PA's/PLANNING ASSOCIATE's documentation. [] Additions or exceptions (if any) to the PAs/PLANNING ASSOCIATE's note and plan are summarized below: [] (TEN SHELL,MARCELA Campbell) ED Attending Observation Initial Observation Note: I have seen and personally examined JOHN BLACKBURN on 02/18/17 at 1721. I agree with the current emergency department documentation. The disposition (admission or discharge) is uncertain at this time, she needs a period of observation for the following reason(s): The ED Nurse caring for this patient has been personally informed as to what the patient is being observed for. (EVERARDO SOTELO,AFUA)
[2017-02-18] MEDS ORDERED: BACTRIM DS TAB1 EACH PO (17:28)
[2017-02-18] MEDS ORDERED: KEFLEX500 M1 PO (17:42)
== END 2017-02-18 17:42 ==
LOC: ERH 15:52
DX: L03.116 Cellulitis of left lower limb (principal)